=== PATIENT | female | born 1990 | race Caucasian/White ===

== ENCOUNTER 2019-04-09 12:14 | Outpatient (REF) | payer MEDICAID, SELFPAY ==
--- NOTE | 2019-04-09 11:40 | PAPFT_PTH ---
PATIENT: Bolivar Mackenzie LOC: DC U#:[id number] AGE/SX: 28/F ROOM: RE04/09/[address]: Martin Romano RN : 1990 BED: DIS: 04/09/2019 SPEC #: [id number] RECD: 04/09/19 12:53 STATUS: RAMBO REQ #: [id number] ROBY: 04/09/19 11:[address]: Martin Romano DEPT: [facility] Cytology RECD BY: Cecily Waite ENTERED: 04/09/19 12:53 SP TYPE: PAPFT OTHR DR: None Tissues: 1 - CX/ENDOCX FOR PAP SMEARS Procedures: PAP THIN PREP/UVM Screening Comments: [id number]
== END 2019-04-09 12:34 ==
LOC: LBN 12:14
PROVIDERS: Visit Provider Advanced Practice Midwife
DX: Z12.4 Encounter for screening for malignant neoplasm of cervix (principal)
CPT/HCPCS: 88142

== ENCOUNTER 2019-04-09 12:15 | Outpatient (REF) | payer MEDICAID, SELFPAY ==
[2019-04-09 14:45] LABS: *AMPHETAMINES SCREEN URINE Negative (Negative); *BARBITURATES SCREEN URINE Negative (Negative); *BENZODIAZEPINES SCREEN URINE Negative (Negative); Cannabinoids THC POSITIVE (Negative); Cocaine Screen,Urine Negative (Negative); METHADONE URINE SCREEN Negative (Negative); OPIATES URINE SCREEN Negative (Negative)
[2019-04-09 14:51] LABS: Tricyclic Antidepressants Negative (Negative)
[2019-04-10 14:02] LABS: Chlamydia Result Negative (Negative); GC Result Negative (Negative)
[2019-04-12 10:51] LABS: Buprenorphine Negative; Norbuprenorphine Negative
== END 2019-04-09 12:35 ==
LOC: LBN 12:15
PROVIDERS: Visit Provider Advanced Practice Midwife
DX: Z34.91 Encounter for supervision of normal pregnancy, unspecified, first trimester (principal); Z11.3 Encounter for screening for infections with a predominantly sexual mode of transmission
CPT/HCPCS: 80307; 87491; 87591; 87086; 87480; 87510; 87660

== ENCOUNTER 2019-04-11 11:10 | Outpatient (CLI) | payer MEDICAID, SELFPAY ==
[2019-04-11 11:54] LABS: Kit/Specimen SENT
[2019-04-11 12:07] LABS: Glucose,1 Hr (Glucola) 87 mg/dL (80-140)
[2019-04-11 12:17] LABS: Abs Immature Grans 0.01 k/cumm (0.0-0.09); Absolute Lymphocyte Count 1.03 k/cumm (1.2-3.4); Absolute Monocyte Count 0.45 k/cumm (0.11-0.7); Absolute Neutrophil Count 4.44 k/cumm (1.2-6.7); Eosinophils % 1.7; HCT 37.6 % (36.0-46.0); HGB 12.8 g/dL (12.0-15.5); Immature Grans % 0.2 %; Lymphocytes % 17.1; Mean Corpuscular Hemoglobin 29.5 pg (27.0-33.0); Mean Corpuscular Volume 86.6 fL (80-95); Mean Platelet Volume 11.8 fL (8.0-11.0); Monocytes % 7.5; Neutrophils % 73.5; Platelet Count 202 x1000/uL (130-400); RBC 4.34 m/cumm (4.00-5.20); RBC Distribution Width 12.9 % (11.7-14.6); White Blood Cell Count 6.03 k/cumm (4.4-10.8)
[2019-04-11 12:38] LABS: ALT 49 U/L (14-59); AST 21 U/L (15-37); Albumin 3.2 g/dL (3.4-5.0); Alkaline Phosphatase 61 U/L (46-116); Bilirubin, Direct 0.13 mg/dL (0.00-0.20); Bilirubin, Total 0.4 mg/dL (0.2-1.0); TSH (W/Ref FT4) 0.56 uIU/mL (0.36-3.74); Total Protein 6.5 g/dL (6.4-8.2)
[2019-04-12 11:01] LABS: Rubella IgG Ab (UVM) Positive (See Note); Varicella IgG Antibody Positive (See Note)
[2019-04-12 11:20] LABS: HIV-1/2 Ag & Ab Screen Negative (Negative)
[2019-04-12 11:21] LABS: Hepatitis B Surface Ag Negative (Negative)
[2019-04-12 11:24] LABS: Hepatitis C Ab w Rflx HCV PCR Negative (Negative)
[2019-04-12 12:03] LABS: Syphilis Total Ab w/Reflex Nonreactive (Nonreactive)
[2019-04-19 15:01] LABS: Result Summary NEGATIVE; Specimen WB Whole Blood
== END 2019-04-11 11:30 ==
PROVIDERS: PCP Internal Medicine; Visit Provider Advanced Practice Midwife
DX: Z34.91 Encounter for supervision of normal pregnancy, unspecified, first trimester (principal); Z36.89 Encounter for other specified antenatal screening
CPT/HCPCS: 80076; 82950; 86787; 86803; 86850; 86900; 86901; 87340; 87389; 81220; 84443; 85025; 86762; 86780

== ENCOUNTER 2019-06-04 01:44 | Outpatient (CLI) | payer MEDICAID, SELFPAY ==
--- NOTE | 2019-06-04 07:15 | DI.US_ITS ---
EXAM: US OB 2-3 TRIMESTER CLINICAL HISTORY: anatomic survey,Z34.90. TECHNIQUE: Transabdominal obstetrical ultrasound performed. COMPARISON: No exams were available for comparison FINDINGS: Transabdominal obstetrical ultrasound performed. FINDINGS: Number of fetuses: One. position: Variable. heart rate: 141 bpm. Placental grade: 0 -1 Placental location: Anterior. No evidence of previa. BIOMETRIC DATA: BPD: 45 millimeters HC: 174 millimeters AC: 143 millimeters FL: 31 millimeters Cisterna Magna: 5.1 millimeters Cerebellum: 1.93 cm EFW: !Error grms !Error% Composite Age: 19+ 5 weeks EDC by US: 24 October 2019 . Amount of fluid is within normal limits. ANATOMICAL SURVEY: Four-chambered heart: Unremarkable. LVOT: Unremarkable. RVOT: Unremarkable. Left-sided stomach: Unremarkable. urinary bladder: Unremarkable. Bilateral kidneys: Unremarkable. Three-vessel cord: Unremarkable. Cord insertion: Unremarkable. Umbilical artery velocity: Unremarkable. Posterior fossa:Unremarkable. ventricles: Unremarkable. nose: Unremarkable. lips: Unremarkable. palate: Unremarkable. spine: Unremarkable. Two arms and two legs: Unremarkable. IMPRESSION: 1. Single live intrauterine gestation as above. 2. Normal anatomic survey. DATA REPOSITORY:
== END 2019-06-04 02:04 ==
PROVIDERS: PCP Internal Medicine; Visit Provider Advanced Practice Midwife
DX: Z34.92 Encounter for supervision of normal pregnancy, unspecified, second trimester (principal); Z3A.19 19 weeks gestation of pregnancy
CPT/HCPCS: 76805

== ENCOUNTER 2019-08-03 04:02 | Outpatient (CLI) | payer MEDICAID, SELFPAY ==
[2019-08-03 09:25] LABS: HCT 36.6 % (36.0-46.0); HGB 12.1 g/dL (12.0-15.5); Mean Corp. HGB Concentration 33.1 g/dL (32.0-36.0); Mean Corpuscular Hemoglobin 29.2 pg (27.0-33.0); Mean Corpuscular Volume 88.4 fL (80-95); Mean Platelet Volume 10.7 fL (8.0-11.0); Platelet Count 214 x1000/uL (130-400); RBC 4.14 m/cumm (4.00-5.20); RBC Distribution Width 13.8 % (11.7-14.6); White Blood Cell Count 8.76 k/cumm (4.4-10.8)
[2019-08-03 09:47] LABS: Glucose,1 Hr (Glucola) 106 mg/dL (80-140)
== END 2019-08-03 04:22 ==
PROVIDERS: PCP Internal Medicine; Visit Provider Advanced Practice Midwife
DX: Z34.92 Encounter for supervision of normal pregnancy, unspecified, second trimester (principal)
CPT/HCPCS: 36415; 82950; 85027

== ENCOUNTER 2019-09-13 09:58 | Outpatient (CLI) | payer MEDICAID, SELFPAY ==
[2019-09-13 10:39] LABS: HCT 39.2 % (36.0-46.0); HGB 12.9 g/dL (12.0-15.5); Mean Corp. HGB Concentration 32.9 g/dL (32.0-36.0); Mean Corpuscular Hemoglobin 28.7 pg (27.0-33.0); Mean Corpuscular Volume 87.1 fL (80-95); Mean Platelet Volume 11.3 fL (8.0-11.0); Platelet Count 250 x1000/uL (130-400)
[2019-09-13 11:33] LABS: ALT 24 U/L (14-59); AST 15 U/L (15-37); Albumin 2.8 g/dL (3.4-5.0); Alkaline Phosphatase 106 U/L (46-116); Anion Gap 12.8 mmol/L (3-11); BUN 8 mg/dL (7-18); Bilirubin, Total 0.3 mg/dL (0.2-1.0); CO2 23.2 mmol/L (21.0-32.0); CREATININE 0.64 mg/dL (0.55-1.02); Calcium 8.8 mg/dL (8.5-10.1); Chloride 102 mmol/L (98-107); Glucose 111 mg/dL (74-106); Potassium 3.9 mmol/L (3.5-5.1); Sodium 138 mmol/L (136-145); Total Protein 6.6 g/dL (6.4-8.2); Uric Acid 5.1 mg/dL (2.6-6.0)
== END 2019-09-13 10:18 ==
PROVIDERS: PCP Internal Medicine; Visit Provider Advanced Practice Midwife
DX: O16.3 Unspecified maternal hypertension, third trimester (principal)
CPT/HCPCS: 36415; 80053; 85027; 84550

== ENCOUNTER 2019-09-13 11:51 | Outpatient (REF) | payer MEDICAID, SELFPAY ==
[2019-09-13 13:04] LABS: PROTEIN 29.3 mg/dL
[2019-09-13 13:10] LABS: COMMENT (LAB VIEW ONLY) 137.23 mg/dL; Prot/Crea Ur Ratio 0.21
== END 2019-09-13 12:11 ==
LOC: LBN 11:51
PROVIDERS: PCP Internal Medicine; Visit Provider Advanced Practice Midwife
DX: O16.3 Unspecified maternal hypertension, third trimester (principal)
CPT/HCPCS: 82565; 84156

== ENCOUNTER 2019-09-17 07:09 | Outpatient (CLI) | payer MEDICAID, SELFPAY ==
[2019-09-17 10:32] LABS: PROTEIN 19.2 mg/dL (0.0-11.9); Total Volume 2000 ml
== END 2019-09-17 07:29 ==
PROVIDERS: PCP Internal Medicine; Visit Provider Advanced Practice Midwife
DX: O13.3 Gestational [pregnancy-induced] hypertension without significant proteinuria, third trimester (principal); Z3A.33 33 weeks gestation of pregnancy
CPT/HCPCS: 59025; 81050; 84155

== ENCOUNTER 2019-09-20 10:01 | Outpatient (CLI) | payer MEDICAID, SELFPAY ==
[2019-09-20 15:49] LABS: HGB 12.9 g/dL (11.2-15.7); MCH 28.9 pg (27.0-33.0); MCHC 33.1 % (32.0-36.0); MCV 87.2 fL (80-95); MPV 11.2 fL (8.0-11.0); Platelet Count 238 10^3/uL (130-400); RBC 4.47 10^6/uL (3.93-5.22); RDW 13.5 % (11.7-14.6); RDW-SD 42.8 fL; WBC 8.58 10^3/uL (4.4-10.8)
[2019-09-20 16:03] LABS: ALT 20 U/L (14-59); AST 17 U/L (15-37); Albumin 2.9 g/dL (3.4-5.0); Alkaline Phosphatase 102 U/L (46-116); Anion Gap 11.6 mmol/L (3-11); BUN 8 mg/dL (7-18); Bilirubin, Total 0.5 mg/dL (0.2-1.0); CO2 22.4 mmol/L (21.0-32.0); CREATININE 0.57 mg/dL (0.55-1.02); Calcium 8.8 mg/dL (8.5-10.1); Chloride 101 mmol/L (98-107); Glucose 79 mg/dL (74-106); Potassium 3.8 mmol/L (3.5-5.1); Sodium 135 mmol/L (136-145); Total Protein 7.2 g/dL (6.4-8.2); Uric Acid 5.1 mg/dL (2.6-6.0)
[2019-09-20 16:31] LABS: PROTEIN < 6.0 mg/dL
[2019-09-20 16:33] LABS: COMMENT (LAB VIEW ONLY) < 13.00 mg/dL
== END 2019-09-20 10:21 ==
PROVIDERS: PCP Internal Medicine; Visit Provider Advanced Practice Midwife
DX: O13.3 Gestational [pregnancy-induced] hypertension without significant proteinuria, third trimester (principal); Z3A.36 36 weeks gestation of pregnancy
CPT/HCPCS: 80053; 85027; 59025; 82565; 84156; 84550

== ENCOUNTER 2019-09-24 01:06 | Outpatient (CLI) | payer MEDICAID, SELFPAY ==
--- NOTE | 2019-09-24 06:30 | DI.US_ITS ---
EXAM: US OB JOHNSON WEIGHT CLINICAL HISTORY: gestational hypertension,013.9 TECHNIQUE: Ultrasound performed using standard protocol. COMPARISON: US US OB 2-3 TRIMESTER from 06/04/2019 FINDINGS: Ob ultrasound was performed utilizing 3rd trimester protocol. biometry is consistent with gestational age of 35 weeks 6 days and an EDC October 23, 2019. Estimated weight is 2715 grams which is at the 75th percentile for predicted gestational age. Placenta is anterior with no placenta previa. The amniotic fluid index is 8 and there is visually a normal quantity of amniotic fluid. Fetus is in cephalic presentation. heart rate 132 BPM. IMPRESSION: DATA REPOSITORY:
== END 2019-09-24 01:26 ==
PROVIDERS: PCP Internal Medicine; Visit Provider Advanced Practice Midwife
DX: O13.3 Gestational [pregnancy-induced] hypertension without significant proteinuria, third trimester (principal)
CPT/HCPCS: 76816

== ENCOUNTER 2019-09-24 09:34 | Outpatient (CLI) | payer MEDICAID, SELFPAY | END 2019-09-24 09:54 | PROVIDERS: PCP Internal Medicine; Visit Provider Advanced Practice Midwife | DX: O13.3 Gestational [pregnancy-induced] hypertension without significant proteinuria, third trimester (principal); Z3A.34 34 weeks gestation of pregnancy | CPT/HCPCS: 59025 ==

== ENCOUNTER 2019-09-27 07:09 | Outpatient (CLI) | payer MEDICAID, SELFPAY ==
[2019-09-27 10:06] LABS: HCT 39.2 % (36.0-46.0); HGB 12.8 g/dL (11.2-15.7); MCH 28.8 pg (27.0-33.0); MCHC 32.7 % (32.0-36.0); MCV 88.3 fL (80-95); MPV 11.4 fL (8.0-11.0); Platelet Count 229 10^3/uL (130-400); RBC 4.44 10^6/uL (3.93-5.22); RDW 13.9 % (11.7-14.6); RDW-SD 44.6 fL; WBC 9.73 10^3/uL (4.4-10.8)
[2019-09-27 10:18] LABS: ALT 25 U/L (14-59); AST 16 U/L (15-37); Albumin 2.7 g/dL (3.4-5.0); Alkaline Phosphatase 104 U/L (46-116); Anion Gap 9.9 mmol/L (3-11); BUN 9 mg/dL (7-18); Bilirubin, Total 0.4 mg/dL (0.2-1.0); CO2 23.1 mmol/L (21.0-32.0); CREATININE 0.82 mg/dL (0.55-1.02); Calcium 8.7 mg/dL (8.5-10.1); Chloride 102 mmol/L (98-107); Glucose 91 mg/dL (74-106); Potassium 3.8 mmol/L (3.5-5.1); Sodium 135 mmol/L (136-145); Uric Acid 5.6 mg/dL (2.6-6.0)
[2019-09-27 11:06] LABS: COMMENT (LAB VIEW ONLY) 44.06 mg/dL; Prot/Crea Ur Ratio 0.27
== END 2019-09-27 07:29 ==
PROVIDERS: PCP Internal Medicine; Visit Provider Advanced Practice Midwife
DX: O13.3 Gestational [pregnancy-induced] hypertension without significant proteinuria, third trimester (principal); Z3A.35 35 weeks gestation of pregnancy
CPT/HCPCS: 36415; 80053; 85027; 59025; 82565; 84156; 84550; 87081

== ENCOUNTER 2019-10-01 07:22 | Outpatient (REF) | payer MEDICAID, SELFPAY | END 2019-10-01 07:42 | LOC: BCD 07:22 | PROVIDERS: PCP Internal Medicine; Visit Provider Advanced Practice Midwife | DX: O13.3 Gestational [pregnancy-induced] hypertension without significant proteinuria, third trimester (principal); Z3A.35 35 weeks gestation of pregnancy | CPT/HCPCS: 59025 ==

== ENCOUNTER 2019-10-04 13:58 | Outpatient (CLI) | payer MEDICAID, SELFPAY ==
[2019-10-04 14:52] LABS: HCT 38.9 % (36.0-46.0); HGB 12.7 g/dL (11.2-15.7); MCH 29.1 pg (27.0-33.0); MCHC 32.6 % (32.0-36.0); MPV 11.2 fL (8.0-11.0); Platelet Count 230 10^3/uL (130-400); RBC 4.37 10^6/uL (3.93-5.22); RDW-SD 45.6 fL; WBC 9.44 10^3/uL (4.4-10.8)
[2019-10-04 15:13] LABS: ALT 18 U/L (14-59); AST 11 U/L (15-37); Albumin 2.7 g/dL (3.4-5.0); Alkaline Phosphatase 106 U/L (46-116); Anion Gap 7.4 mmol/L (3-11); BUN 9 mg/dL (7-18); Bilirubin, Total 0.4 mg/dL (0.2-1.0); CO2 25.6 mmol/L (21.0-32.0); CREATININE 0.64 mg/dL (0.55-1.02); Calcium 8.7 mg/dL (8.5-10.1); Chloride 101 mmol/L (98-107); Glucose 85 mg/dL (74-106); Potassium 3.9 mmol/L (3.5-5.1); Sodium 134 mmol/L (136-145)
[2019-10-04 22:23] LABS: PROTEIN < 6.0 mg/dL
[2019-10-04 22:34] LABS: COMMENT (LAB VIEW ONLY) 10.55 mg/dL
== END 2019-10-04 14:18 ==
PROVIDERS: Advanced Practice Midwife; PCP Internal Medicine; Visit Provider Advanced Practice Midwife
DX: O13.3 Gestational [pregnancy-induced] hypertension without significant proteinuria, third trimester (principal); Z3A.36 36 weeks gestation of pregnancy
CPT/HCPCS: 80053; 85027; 59025; 82565; 84156; 84550

== ENCOUNTER 2019-10-08 07:49 | Outpatient (CLI) | payer MEDICAID, SELFPAY | END 2019-10-08 08:09 | PROVIDERS: PCP Internal Medicine; Visit Provider Advanced Practice Midwife | DX: O13.3 Gestational [pregnancy-induced] hypertension without significant proteinuria, third trimester (principal); Z3A.36 36 weeks gestation of pregnancy | CPT/HCPCS: 59025 ==

== ENCOUNTER 2019-10-12 15:08 | Observation (INO) | payer MEDICAID, SELFPAY ==
[2019-10-12 16:45] LABS: HGB 12.8 g/dL (11.2-15.7); MCH 28.8 pg (27.0-33.0); MCHC 32.8 % (32.0-36.0); MCV 87.6 fL (80-95); MPV 11.5 fL (8.0-11.0); Platelet Count 243 10^3/uL (130-400); RBC 4.45 10^6/uL (3.93-5.22); RDW 14.2 % (11.7-14.6); RDW-SD 45.3 fL; WBC 10.56 10^3/uL (4.4-10.8)
[2019-10-12] MEDS: miSOPROStol 25 MCG TAB PO (20:07)
[2019-10-12] MEDS: Zolpidem 5 MG TAB 10 MG PO (22:18)
[2019-10-13] MEDS: miSOPROStol 25 MCG TAB PO ×2 (00:28→04:31)
[2019-10-13] MEDS: miSOPROStol 50 MCG TAB (14:11)
[2019-10-13] MEDS: hydrOXYzine PAMOATE 25 MG CAP 50 MG PO (20:42)
[2019-10-13] MEDS: MORPHine 10 MG/ML VIAL IM (20:43)
[2019-10-13 21:02] LABS: COVID-19 RT-PCR UVMMC Result Negative (Negative)
== END 2019-10-14 08:20 | disposition home or self-care (01) ==
PROVIDERS: Admitting Provider Advanced Practice Midwife; PCP Internal Medicine; Visit Provider Advanced Practice Midwife
DX: O13.3 Gestational [pregnancy-induced] hypertension without significant proteinuria, third trimester (principal); O61.1 Failed instrumental induction of labor; O61.0 Failed medical induction of labor; O76 Abnormality in fetal heart rate and rhythm complicating labor and delivery; O26.813 Pregnancy related exhaustion and fatigue, third trimester; Z3A.37 37 weeks gestation of pregnancy
CPT/HCPCS: 36415; 85027; 86850; 86900; 86901; U0003; 59200; J2270; J3490

== ENCOUNTER 2019-10-15 16:16 | Inpatient (IN) | payer MEDICAID, SELFPAY ==
[2019-10-15] MEDS: Dinoprostone-CERVICAL 10 MG VSUPP VG (17:30)
[2019-10-15] MEDS: Zolpidem 5 MG TAB 10 MG PO (21:05)
[2019-10-16] MEDS: Normal Saline Flush 10 ML SYR IVP (09:05)
[2019-10-16] MEDS: Lactated Ringers 1,000 ML 125 ML IV ×2 (09:06→16:09)
[2019-10-16] MEDS: Oxytocin/Normal Saline 30 UNITS/500 ML BAG IV (09:06)
[2019-10-17 08:16] LABS: HCT 36.3 % (36.0-46.0); HGB 12.1 g/dL (11.2-15.7); MCH 28.9 pg (27.0-33.0); MCHC 33.3 % (32.0-36.0); MCV 86.8 fL (80-95); MPV 11.6 fL (8.0-11.0); Platelet Count 220 10^3/uL (130-400); RBC 4.18 10^6/uL (3.93-5.22); RDW 14.3 % (11.7-14.6); RDW-SD 45.5 fL; WBC 8.72 10^3/uL (4.4-10.8)
== END 2019-10-17 19:20 | disposition home or self-care (01) | DRG 806 ==
PROVIDERS: Admitting Provider Advanced Practice Midwife; PCP Internal Medicine; Visit Provider Advanced Practice Midwife
DX: O13.4 Gestational [pregnancy-induced] hypertension without significant proteinuria, complicating childbirth (principal); O98.32 Other infections with a predominantly sexual mode of transmission complicating childbirth; Z37.0 Single live birth; O69.1XX0 Labor and delivery complicated by cord around neck, with compression, not applicable or unspecified; O70.1 Second degree perineal laceration during delivery; O76 Abnormality in fetal heart rate and rhythm complicating labor and delivery; Z3A.37 37 weeks gestation of pregnancy; Z11.59 Encounter for screening for other viral diseases; O99.324 Drug use complicating childbirth; F12.10 Cannabis abuse, uncomplicated; A60.00 Herpesviral infection of urogenital system, unspecified; O10.92 Unspecified pre-existing hypertension complicating childbirth
CPT/HCPCS: 36415; 85027; 86850; 86900; 86901; 59200

== ENCOUNTER 2021-08-28 02:04 | Outpatient (CLI) | payer MEDICAID, SELFPAY ==
--- OUTSIDE RECORDS SUMMARY | 2021-08-28 02:06 | XMS_ITS | Encounter Summary ---
:1990 Author Organization [place] [address] Care Team Providers Name Role Phone AlinStephanie DANIELITO Primary Care Provider [phone] Encounter Details Date Type Department Care Team Description 11/19/2015 Telephone Endocrinology at [facility] Naima Horton, [place] [phone] Social History Tobacco Use Types Packs/Day Years Used Date Never Smoker Sex Assigned at Date Recorded Not on file documented as of this encounter Miscellaneous Notes Telephone Encounter - Tasia Pearce MD - 11/19/2015 11:33 AM EDT Returned the patient's call, relayed results and plan as outlined in telephone encounter dated 11/13/15. Bolivar states she had gone twice for LDDST, initially in the first week of October after having taken the two 0.5mg tablets at 11pm, but the lab had lost her registration so she couldn't have the bloodwork done because of the delay. The lab called in a script for 1mg dexamethasone which she picked up at her local pharmacy, and a couple weeks later, on 11/09 she took the 1mg dex at 11pm, and went forbloodwork the next morning, which she had done at 8:05am. Because she had insufficient suppression of her cortisol level, it could either be related to Luz Maria's, pseudocushings, or hypermetabolism of dexamethasone. I will have her do a 24 hour urine collection and repeat a LDDST. I instructed her to wait another 2-3 weeks before doing the 24hr UFC (to allow3-4 weeks for the dexamethasone to completely exit her system), and to do the repeat LDDST after shecompletes the 24h UFC. [place] 1[place]5 hours away so I will send her lab slips via mail, and send a script electronically forthe 1mg dex to her local pharmacy. TASIA PEARCE MD Acid Tank Cleanerpre sales architect Section of Endocrinology [facility] Telephone Encounter - Naima Hicks RN - 11/19/2015 10:37 AM EDT Bolivar calls in returning a call to Dr Pearce. States she was instructed to call between 9-10 (typewriter ribbon winder received message at 10:37) Message forwarded to Dr Portia Lutz can be reached at [phone] documented in this encounter Plan of Treatment Not on filedocumented as of this encounter Results (ABNORMAL) Creatinine, urine, 24 hour (04/09/2016) athologist Signature U Creatinine 158 (EXTERNAL/ ABN) Specimen (Source) Anatomical Location Collection Method / Collectio n Time Received Time / Laterality Volume Urine specimen 04/09/2016 (specimen) Narrative This result has an attachment that is no t available. Tasia Pearce MD URINE ORDERABLES (ABNORMAL) Cortisol, urine, 24 hour (04/09/2016) athologist Signature U24 Cortisol 29 (External Lab) Specimen (Source) Anatomical Location Collection Method / Collectio n Time Received Time / Laterality Volume Urine specimen 04/09/2016 (specimen) Narrative This result has an attachment that is no t available. Tasia Pearce MD URINE ORDERABLES documented in this encounter Visit Diagnoses Diagnosis Oligomenorrhea - Primary Scanty or infrequent menstruation documented in this encounter Care Teams Diagnostic Technician Relationship Specialty Start Date End Date Stephanie Ogden APRN PCP - General Family Medicine 08/20/[address] [place] [address] [address] [place] [address] documented as of this encounter
--- OUTSIDE RECORDS SUMMARY | 2021-08-28 02:06 | XMS_ITS | Encounter Summary ---
:1990 Author Organization [facility] [place] [address] Care Team Providers Name Role Phone Stephanie Ogden APRN Primary Care Provider [phone] Encounter Details Date Type Department Care Team Description 04/27/2016 Telephone Endocrinology at [facility] Naima Hicks, [place] [phone] Social History Tobacco Use Types Packs/Day Years Used Date Never Smoker Sex Assigned at Date Recorded Not on file documented as of this encounter Miscellaneous Notes Telephone Encounter - Naima Hicks, RN - 04/27/2016 10:18 AM EST Bolivar calls in and left message that she is looking for results of recent 24 hour urine tests. Message forwarded to Dr Pearce documented in this encounter Plan of Treatment Not on filedocumented as of this encounter Visit Diagnoses Not on filedocumented in this encounter Care Teams Bridal Sales Consultant Relationship Specialty Start Date End Date Stephanie Ogden APRN PCP - General Family Medicine 08/20/[address] [place] [address] [address] [place] [address] documented as of this encounter
--- OUTSIDE RECORDS SUMMARY | 2021-08-28 02:06 | XMS_ITS | Encounter Summary ---
:1990 Author Organization [facility] [place] [address] Care Team Providers Name Role Phone Stephanie Ogden APRN Primary Care Provider Encounter Details Date Type Department Care Team Description 03/29/2016 Telephone Endocrinology at [facility] [place] [phone] Social History Tobacco Use Types Packs/Day Years Used Date Never Smoker Sex Assigned at Date Recorded Not on file documented as of this encounter Miscellaneous Notes Telephone Encounter - Cleopatra Ewing LPN - 04/05/2016 8:45 AM EST Images from the original note were not included. Bolivar Mackenzie?? Female, 25 y.o., 1990 Weight: (!) 122.9 kg (271 lb) Home: Work: PCP: Stephanie Ogden APRN myD-H: Code Exp Next Appt: None Conversation (Newest Message First) April 02, 2016 Tasia Pearce MD to Naima Hicks RN ??? Me ?? 5:05 PM Oops sorry as i sent that last quicknote, i forgot it was Cleopatra who was working on this case, not Naima. Sorry for the confusion! Tasia Pearce MD to Naima Hicks RN ?? 5:03 PM Note 25-OH-D was 28 (ref >30) - she can take an OTC vitamin D supplement 2000 units daily ?? Vitamin B12 was 482 (ref >500) - she can take an OTC vitamin B12 supplement 1000 mcg daily. ?? I took another look at that cortisol level result that we have from November 2015, and looks like it was a serum cortisol done at ~8am. That cortisol level was 3. Per the eDH record it was supposed to have been a low dose dexamethasone suppression test. ?? In that case, in contrast to what I said before, I do need her to do the 24 hour urine collection. If she misplaced the lab slips, we can mail her another copy of each - needs to be a 24 hr urine free cortisol AND a 24 hr urine creatinine level. Both. Please make sure she understands this. ?? TASIA PEARCE MD Physician Surgeonbroadcast checker Section of Endocrinology [facility] ?? Called patient at which time above message was read to her. Patient agrees with plan of care and states she is currently taking Vitamin B12 150 mcg daily and will increase to 1000 mcg daily . Is taking vitamin D 1000 IU daily and will increase to 2000 IU daily. Lab orders faxed to lab @ [facility] per patient request. Telephone Encounter - Cleopatra Ewing LPN - 03/31/2016 3:12 PM EST Called patient at which time she was told per Dr Pearce that Luz Maria's syndrome was ruled out. No further testing is necessary. PCP will prescribe supplements for vitamin d and B12 if Dr Pearce recommends it. Labs faxed to PCP per Dr Pearce. Telephone Encounter - Tasia Pearce MD - 03/29/2016 6:50 PM EST Please send a copy of the scanned lab reports listed in eDH under 11/08/15 and 11/12/15 to the patient's PCP. They include the low 25-OH-D and vitamin B12 levels. 24h urine cortisol result noted to be low at 3, which is negative for Chelsea's screening. The LDDST is actually not needed at this point, since we have 3 negative screening tests for Luz Maria's syndrome (MN salivary x 2, 24h UFC). TASIA PEARCE MD Physician Surgeonbroadcast checker Section of Endocrinology [facility] Telephone Encounter - Cleopatra Ewing LPN - 03/29/2016 10:48 AM EST Images from the original note were not included. R/c to patient. I am at a stand still. I never got the lab orders that I was supposed to and Ialked to someone about my B12 and vitamin D but never heard back. I have things going on that my PCP can't pinpoint. My pcp never received anything about my low B12 and D. They asked me to call you. Forward to Dr Pearce that following labs are needed. If so order for serum cortisol and dexamethasone need to be placed in edh. Telephone 11/19/2015 Endocrinology Naima Hicks RN Oligomenorrhea Dx Conversation (Newest Message First) Tasia Pearce MD to [facility] ?? 11/19/15 11:50 AM Please mail external lab slips ordered in this encounter to the patient (serum cortisol, dexamethasone level, 24h urine cortisol, 24h urine creatinine). Thanks so much! --Tasia documented in this encounter Plan of Treatment Not on filedocumented as of this encounter Visit Diagnoses Not on filedocumented in this encounter Care Teams Cheese Blender Relationship Specialty Start Date End Date Stephanie Ogden APRN PCP - General Family Medicine 08/20/[address] [place] [address] [address] [place] [address] documented as of this encounter
--- OUTSIDE RECORDS SUMMARY | 2021-08-28 02:06 | XMS_ITS | Encounter Summary ---
:1990 Author Organization [facility] [place] [address] Care Team Providers Name Role Phone Stephanie Ogden APRN Primary Care Provider [phone] Encounter Details Date Type Department Care Team Description 10/17/2015 Telephone Endocrinology at [facility] Naima Horton, [place] [address] Social History Tobacco Use Types Packs/Day Years Used Date Never Smoker Sex Assigned at Date Recorded Not on file documented as of this encounter Miscellaneous Notes Telephone Encounter - Naima Hicks, RN - 10/17/2015 11:52 AM EDT Bolivar calls in and left message that she was supposed to do a over night dexamethasone suppression test. States that she took the dexamethasone and went to the lab and states that they lost the lab slip so couldn't do the blood work. Spoke with Bolivar she will need new script for dexamethasone to be sent to [facility]. Will fax lab slip to [facility]. Lab faxed. documented in this encounter Plan of Treatment Not on filedocumented as of this encounter Visit Diagnoses Not on filedocumented in this encounter Care Teams Boilermaker Industrial Boilers Relationship Specialty Start Date End Date Stephanie Ogden APRN PCP - General Family Medicine 08/20/[address] [place] [address] , [address] [place], [place] [id number] documented as of this encounter
--- OUTSIDE RECORDS SUMMARY | 2021-08-28 02:06 | XMS_ITS | Encounter Summary ---
:1990 Author Organization [facility] [place] [address] Care Team Providers Name Role Phone Stephanie Ogden APRN Primary Care Provider [phone] Encounter Details Date Type Department Care Team Description 10/03/2015 Telephone Endocrinology at [facility] Naima Horton, [place] [address] Social History Tobacco Use Types Packs/Day Years Used Date Never Smoker Sex Assigned at Date Recorded Not on file documented as of this encounter Miscellaneous Notes Telephone Encounter - Naima Hicks, RN - 10/03/2015 9:09 AM EDT Placed call to Bolivar to let her know labs being faxed to [facility]. No answer left message. documented in this encounter Plan of Treatment Not on filedocumented as of this encounter Visit Diagnoses Not on filedocumented in this encounter Care Teams County Director Welfare Relationship Specialty Start Date End Date Stephanie Ogden APRN PCP - General Family Medicine 08/20/[address] [place] [address] [address] [place], [place] [id number] documented as of this encounter
--- OUTSIDE RECORDS SUMMARY | 2021-08-28 02:06 | XMS_ITS | Encounter Summary ---
:1990 Author Organization [facility] [place] [address] Care Team Providers Name Role Phone Alin Stephanie APRN Primary Care Provider [phone] Encounter Details Date Type Department Care Team Description 11/16/2018 Hospital Encounter Mammography at [facility] Patsy Gibson, Abnormal finding on [facility] MD breast imaging [facility] [phone] NUCLEAR MEDICINE [phone] [place] [address] Social History Tobacco Use Types Packs/Day Years Used Date Never Smoker Sex Assigned at Date Recorded Not on file documented as of this encounter Medications at Time of Discharge Medication Sig Dispensed Refills Start Date End Date cyanocobalamin 1,000 mcg Take 1,000 mcg by 0 Tablet mouth daily. cholecalciferol, Vitamin Take 2,000 Units by 0 D3, 2,000 unit Capsule mouth daily. FLUoxetine (PROZAC) 20 mg take 1 capsule by 0 Capsule mouth once daily WITH 10MG FOR A TOTAL OF 30MG FLUoxetine (PROZAC) 10 mg take 1 capsule by 0 Capsule mouth once daily WITH 20MG, FOR 30MG TOTAL zolpidem (AMBIEN) 10 mg take 1 tablet by 0 2015 Tablet mouth at bedtime if needed documented as of this encounter Miscellaneous Notes Plan of Care - Crow Noel MD - 11/15/2018 11:17 AM EDT Pre-procedure note for needle breast biopsies performed in radiology. Procedure date: 11/16/2018 Procedure type: - Ultrasound-guided needle biopsy of left breast lesion in upper outer quadrant 2 o'clock 5 cm from the nipple - Repeat ultrasound for consideration of biopsy versus short interval follow up of left breast lesion in upper inner quadrant 11 o'clock 9 cm from the nipple Allergies: Patient has no known allergies. Medications: Current Outpatient Medications: ??? cyanocobalamin 1,000 mcg Tablet, Take 1,000 mcg by mouth daily., Disp: , Rfl: ??? cholecalciferol, Vitamin D3, 2,000 unit Capsule, Take 2,000 Units by mouth daily., Disp: , Rfl: ??? FLUoxetine (PROZAC) 20 mg Capsule, take 1 capsule by mouth once daily WITH 10MG FOR A TOTAL OF 30MG, Disp: , Rfl: 0 ??? FLUoxetine (PROZAC) 10 mg Capsule, take 1 capsule by mouth once daily WITH 20MG, FOR 30MG TOTAL,Disp: , Rfl: 0 ??? zolpidem (AMBIEN) 10 mg Tablet, take 1 tablet by mouth at bedtime if needed, Disp: , Rfl: 0 Anticoagulation status: None Imaging reviewed and procedural plan approved by Dr. Crow Noel MD documented in this encounter Plan of Treatment Not on filedocumented as of this encounter Procedures Procedure Name Priority Date/Time Associated Diagnosis Comme nts MAMMO US BIOPSY Routine 11/16/2018 2:30 PM Abnormal finding on Results for this LEFT EDT breast imaging procedure are in the results section. SPECIMEN TO Routine 11/16/2018 2:27 PM Results f or this PATHOLOGY EDT procedure are i n the results section. SURGICAL PATHOLOGY Routine 11/16/2018 2:20 PM Res ults for this REPORT EDT procedure are i n the results section. documented in this encounter Results Mammo Us Biopsy Left (11/16/2018 2:30 PM EDT) Anatomical Region Laterality Modality Breast Left Mammography Specimen (Source) Anatomical Location Collection Method / Collectio n Time Received Time / Laterality Volume Impressions 11/17/2018 12:14 PM EDT Benign and concordant result RECOMMENDATION: No recommendation/follow-up in regards t o lesion 1. The patient is pending follow-up in approximately 6 weeks for l esion 2. She has been scheduled for this appointment. REVIEW PATH CONFERENCE?: No NOTE: Findings were discussed with the p atient by phone. The comprehensive breast program was informed. Thank you for letting us participate in the care of this patient. For questions regarding this report, please contact e number below. ? Narrative 11/17/2018 12:14 PM EDT LEFT BREAST ULTRASOUND GUIDED AUTOMATED CORE BIOPSY CLINICAL HISTORY: 27-year-old female, ul trasound-guided biopsy of left breast lesion 1, at approximately 2:00, 5 cm fr om the nipple. PROCEDURAL DETAILS: Informed consent was obtained and a time out procedure was performed per protocol. Using local anesthetic (less t fernandez 5 cc of 1% lidocaine), sterile technique, and ultrasound guidance the l esion in the left breast was localized and sampled. Multiple satisfactory core biopsy specim ens were obtained using a 14-gauge automated device. A MergeLocal 14G marker clip was chen archana. The clip was in satisfactory position both sonographically and at fol low-up cranio-caudal and true lateral digital mammography, 0 mm of displacemen t. COMPLICATIONS: None. PROCEDURAL ATTESTATION: Resident: José Miguel Alvarez performed the procedure with the [facility] ent observing. IMAGING DIFFERENTIAL DIAGNOSIS: Fibroadenoma, rule out phyllodes. PATHOLOGIC DIAGNOSIS: Fibroadenoma Patsy Gibson MD IMG MAMMO ORDERABLES Specimen to Pathology (11/16/2018 2:27 PM EDT) Specimen Anatomical Collection Method Collection Time Receive d Time (Source) Location / / Volume Laterality AP Specimen 11/16/2018 2:27 PM 9 2:27 EDT PM EDT Narrative [facility] - 11/16/2018 2:27 PM EDT Specimen requisition ordered. ??Separate Pathology report to follow Braydon Smart MD PATHOLOGY/CYTOLOGY ORDERABLE S Performing Organization Address City/[facility]/[place]IP [place] [address] Surgical Pathology Report (11/16/2018 2:20 PM EDT) Component Value Ref Test Analysis Performed At [facility] Range Method Time Signature Surgical [id number] ? Location: 3[facility] The signing pathologist has (i) examined the relevant preparation(s) for the [facility] specimen(s) and (ii) rendered or confirmed the diagnosis(es) . HOSPITAL LABORATORY . ?Surgic al Pathology DIAGNOSIS Needle biopsies: ?Left breast Diagnosis: ?Fibroadenoma Microcalcifications: ??N/A Electronically signed by: ??Glory Hernandez DO Verified: ??11/17/2018 ?Pathologist Performed at: ??-[facility] Dept. of Pathology, [place], [place] CLINICAL INFORMATION Specimen Submitted: A - Left breast u/s bx 14g Clinical History and Diagnosis: Mass; FA, CA SPECIMEN PROCESSING A - Labeled/Fixative: Left breast US BX, formalin. Quantity/Size: Six, ranging from 0.4-1.0 cm. Tissue Description: [place] fibrofatty needle core biopsi es. Sections/Processing: Entirely submitted in 2 cassettes labeled A1-A2. Ischemic Time: 5 minutes ??ejr Specimen (Source) Anatomical Collection Method Collection Time Re ceived Time Location / / Volume Laterality 11/16/2018 2:20 PM EDT Braydon Smart MD PATHOLOGY/CYTOLOGY ORDERABLE S Performing Organization Address City/State/ZIP Code [place] [facility] [place] [address] documented in this encounter Visit Diagnoses Diagnosis Abnormal finding on breast imaging Other (abnormal) findings on radiologica l examination of breast documented in this encounter Administered Medications Inactive Administered Medications - up to 3 most recent administrations Medication Order MAR Action Action Date Dose Rate Site lidocaine (XYLOCAINE) 10 mg/mL (1 Given 11/16/2018 2:20 PM EDT 1 0 mg %) injection 10 mg 10 mg, Intradermal, ONCE, 1 dose, On Nina 11/16/18 at 1430, Routine documented in this encounter Care Teams Weather Observer Relationship Specialty Start Date End Date Stephanie Ogden APRN PCP - General Family Medicine 08/20/[address] [place] [address] , [address] [place] [address] documented as of this encounter
--- OUTSIDE RECORDS SUMMARY | 2021-08-28 02:06 | XMS_ITS | Encounter Summary ---
:1990 Author Organization [facility] [place] [address] Care Team Providers Name Role Phone Stephanie Ogden APRN Primary Care Provider Encounter Details Date Type Department Care Team Description 01/11/2019 Hospital Encounter Mammography at [facility] Braydon Smart Abnormal finding on [facility] MD Olivia breast imaging [facility] [address] DIAGNOSIC [phone] [place] [address] Social History Tobacco Use Types Packs/Day Years [...] if needed documented as of this encounter Plan of Treatment Not on filedocumented as of this encounter Procedures Procedure Name Priority Date/Time Associated Diagnosis Comme nts MAMMO BREAST US Routine 01/11/2019 11:41 AM Abnormal finding o n Results for this LIMITED LEFT EST breast imaging procedure are in the results section. documented in this encounter Results US Breast Limited Left (01/11/2019 11:41 AM EST) Anatomical Region Laterality Modality Breast Left Mammography Specimen (Source) Anatomical Location Collection Method / Collectio n Time Received Time / Laterality Volume Impressions 01/11/2019 12:07 PM EST Likely fat necrosis left breast that appears stable compared to prior study. Follow-up ultrasound in 6 months to ensu re benign progressive evolution. BI-RADS Category 3: Probably Benign Find ing-short interval follow-up or continued surveillance mammography Thank you for letting us participate in the care of this patient. For questions regarding this report, please contact e number below. ? Narrative 01/11/2019 12:07 PM EST EXAMINATION: US ??BREAST LIMITED LEFT CLINICAL HISTORY: 6 week f/u lesion 2 TECHNIQUE: Targeted left breast ultrasound COMPARISON: Breast ultrasound dated 11/16/2018 FINDINGS: There is stable size and morphology of h ypoechoic focus surrounded by large echogenic region in the subcutaneous fat of the left breast at 11:00 9 cm radial to the nipple. Again noted is mild hyper emia. Findings are highly suggestive of fat necrosis. However given the lack of change, recommend one additional ultrasound in 6 months to demonstrate pr ogressive benign evolution. Braydon Smart MD IMG MAMMO ORDERABLES documented in this encounter Visit Diagnoses Diagnosis Abnormal finding on breast imaging Other (abnormal) findings on radiologica l examination of breast documented in this encounter Care Teams Director Of Community Education Relationship Specialty Start Date End Date Stephanie Ogden APRN PCP - General Family Medicine 08/20/[address] [place] [address] , [address] [place] [address] documented as of this encounter
--- OUTSIDE RECORDS SUMMARY | 2021-08-28 02:06 | XMS_ITS | Encounter Summary ---
:1990 Author Organization [facility] [place] [address] Care Team Providers Name Role Phone Stephanie Ogden SCREEDMAN Primary Care Provider [phone] Encounter Details Date Type Department Care Team Description 11/08/2018 Ancillary Procedure Radiology Library at [facility], Left breast mass [facility] JUSTICE Draper [address] [place], [place] [id number] [phone] Social History Tobacco Use Types Packs/Day Years Used Date Never Smoker Sex Assigned at Date Recorded Not on file documented as of this encounter Plan of Treatment Not on filedocumented as of this encounter Procedures Procedure Name Priority Date/Time Associated Diagnosis Comme nts REQUEST FOR 2ND Routine 11/07/2018 5:03 PM Left breast mass Re sults for this READ MAMMO EDT procedure are i n the results section. documented in this encounter Results Request for 2nd read Mammo (11/07/2018 5:03 PM EDT) Anatomical Region Laterality Modality SO Specimen (Source) Anatomical Location Collection Method / Collectio n Time Received Time / Laterality Volume Impressions 11/08/2018 9:38 AM EDT LEFT BREAST LESION #1 1.3 cm Mass ??Upper Outer Quadrant 2 OCl ock 5 cm from the nipple LEFT BREAST LESION #2 0.8 cm Mass ??Upper Inner Quadrant 11 OC lock 9 cm from the nipple RECOMMENDATION: BI-RADS Category 4: Suspicious Finding - Biopsy Should Be Considered Ultrasound-guided biopsy of lesion 1 and repeat ultrasound consideration for biopsy versus short interval follow-up o f lesion 2 Please note: The interpretation of the [facility] Breast Imaging Radiologist subspecialist may differ fro m the original radiologists interpretation. This is usually not due to a deficiency of the original interpreting radiologist, rather due to the greater skill level afforded by sub-specialization in the field and/or r easonable variations in interpretations. If you have a concern regarding the [facility] interpretation you may contact the [facility] Breast Talent Acquisition Coordinator Office at . Thank you for letting us participate in the care of this patient. For questions regarding this report, please contact e number below. ? Narrative 11/08/2018 9:38 AM EDT INTERPRETATION OF OUTSIDE BREAST IMAGING I have been asked to consult on this pat ient by Dr. Galvez because he/she believes a review of this study may arechiga ge or alter the care of this patient. STUDIES FROM: [facility] DATES: Limited LEFT breast Ultrasound fr 07/06/2018 and 11/02/2018 TYPE OF EXAM: Ultrasound CLINICAL HISTORY: LEFT BREAST MASS @ 2:0 0, CAT 4; ? BX, ? MORE IMAGING; What Modality is the exam? Ultrasound; Body P art (please add comments as necessary): LEFT BREAST; I believe a reinterpretatio n of this exam may alter care of Patient. Yes. ?? COMPARISONS: None FINDINGS: At 2:00 in the LEFT breast 5 cm from the nipple on the study from 07/06/2018 is a 1 cm hypoechoic lobulated mass with a fe w angular margins and minimal internal vascularity. This it increased to 1.3 cm by the November 02 examination and therefore biopsy is recommended. On the November 02 examination, also identified was a 0.8 cm irregular hypoec hoic area with a ill-defined thick echogenic border and some posterior acou stic shadowing but no vascularity. This is at 11:00 9 cm from the nipple. I am u nsure if this was palpable and if the patient has a history of trauma. This co uld be an area of fat necrosis, or hematoma but should be reevaluated with ultrasound at the time of biopsy of lesion 1 with consideration for biopsy v ersus short-term follow-up Procedure Note Patsy Gibson MD - 11/08/2018Formattin g of this note might be different from the original. INTERPRETATION OF OUTSIDE BREAST IMAGING I have been asked to consult on this pat ient by Dr. Galvez because he/she believes a review of this study may arechiga ge or alter the care of this patient. STUDIES FROM: [facility] DATES: Limited LEFT breast Ultrasound [facility] 07/06/2018 and 11/02/2018 TYPE OF EXAM: Ultrasound CLINICAL HISTORY: LEFT BREAST MASS @ 2:0 0, CAT 4; ? BX, ? MORE IMAGING; What Modality is the exam? Ultrasound; Body P art (please add comments as necessary): LEFT BREAST; I believe a reinterpretatio n of this exam may alter care of Patient. Yes. COMPARISONS: None FINDINGS: At 2:00 in the LEFT breast 5 cm from the nipple on the study from 07/06/2018 is a 1 cm hypoechoic lobulated mass with a fe w angular margins and minimal internal vascularity. This it increased to 1.3 cm by the November 02 examination and therefore biopsy is recommended. On the November 02 examination, also identified was a 0.8 cm irregular hypoec hoic area with a ill-defined thick echogenic border and some posterior acou stic shadowing but no vascularity. This is at 11:00 9 cm from the nipple. I am u nsure if this was palpable and if the patient has a history of trauma. This co uld be an area of fat necrosis, or hematoma but should be reevaluated with ultrasound at the time of biopsy of lesion 1 with consideration for biopsy v ersus short-term follow-up IMPRESSION LEFT BREAST LESION #1 1.3 cm Mass Upper Outer Quadrant 2 OCloc k 5 cm from the nipple LEFT BREAST LESION #2 0.8 cm Mass Upper Inner Quadrant 11 OClo ck 9 cm from the nipple RECOMMENDATION: BI-RADS Category 4: Suspicious Finding - Biopsy Should Be Considered Ultrasound-guided biopsy of lesion 1 and repeat ultrasound consideration for biopsy versus short interval follow-up o f lesion 2 Please note: The interpretation of the [facility] Breast Imaging Radiologist subspecialist may differ fro m the original radiologists interpretation. This is usually not due to a deficiency of the original interpreting radiologist, rather due to the greater skill level afforded by sub-specialization in the field and/or r easonable variations in interpretations. If you have a concern regarding the [facility] interpretation you may contact the [facility] Breast Talent Acquisition Coordinator Office at . Thank you for letting us participate in the care of this patient. For questions regarding this report, please contact e number below. Electronically signed by: Lucero Garvin [facility] ([phone]), at 11/08/2018 9:38 AM Rowan RENDON IMG OUTSIDE INTERPRETATION O RDERABLES documented in this encounter Visit Diagnoses Diagnosis Left breast mass Lump or mass in breast documented in this encounter Care Teams Petroleum Sampler Relationship Specialty Start Date End Date Stephanie Ogden APRN PCP - General Family Medicine 08/20/[address] [place] [address] [address] [place] [address] documented as of this encounter
--- OUTSIDE RECORDS SUMMARY | 2021-08-28 02:06 | XMS_ITS | Encounter Summary ---
:1990 Author Organization [facility] [place] [address] Care Team Providers Name Role Phone Stephanie Ogden APRN Primary Care Provider [phone] Encounter Details Date Type Department Care Team Description 04/21/2016 External Results Endocrinology at [facility] Tasia Hendrickson, Oligomenorrhea [facility] [place] [address] [facility] [phone] ENDOCRINOLOGY [place], [place] [address] Social History Tobacco Use Types Packs/Day Years Used Date Never Smoker Sex Assigned at Date Recorded Not on file documented as of this encounter Plan of Treatment Not on filedocumented as of this encounter Procedures Procedure Name Priority Date/Time Associated Diagnosis Comme nts CORTISOL, URINE, 24 Routine 04/09/2016 Oligomenorrhea Result s for this HOUR procedure are i n the results section . documented in this encounter Results (ABNORMAL) Cortisol, urine, 24 hour (04/09/2016) P athologist Signature U24 Cortisol 29 (External Lab) Specimen (Source) Anatomical Location Collection Method / Collectio n Time Received Time / Laterality Volume Urine specimen 04/09/2016 (specimen) Narrative This result has an attachment that is no t available. Tasia Pearce MD URINE ORDERABLES documented in this encounter Visit Diagnoses Diagnosis Oligomenorrhea [place]y or infrequent menstruation documented in this encounter Care Teams Dairy Chemist Relationship Specialty Start Date End Date Stephanie Ogden APRN PCP - General Family Medicine 08/20/[address] [place] [address] , [address] [place] [address] documented as of this encounter
--- OUTSIDE RECORDS SUMMARY | 2021-08-28 02:06 | XMS_ITS | Encounter Summary ---
:1990 Author Organization [facility] [place] [address] Care Team Providers Name Role Phone Isabell Ogdenerinpia ESTEVES Primary Care Provider [phone] Encounter Details Date Type Department Care Team Description 10/04/2015 Hospital Encounter Laboratory Fatigue, unspecified type; [facility] [place] [address] Social History Tobacco Use Types Packs/Day Years Used Date Never Smoker Sex Assigned at Date Recorded Not on file documented as of this encounter Medications at Time of Discharge Medication Sig Dispensed Refills Start Date End Date FLUoxetine (PROZAC) 20 mg take 1 capsule by 0 Capsule mouth once daily WITH 10MG FOR A TOTAL OF 30MG FLUoxetine (PROZAC) 10 mg take 1 capsule by 0 Capsule mouth once daily WITH 20MG, FOR 30MG TOTAL zolpidem (AMBIEN) 10 mg take 1 tablet by mouth 0 09/03/2015 Tablet at bedtime if needed documented as of this encounter Plan of Treatment Not on filedocumented as of this encounter Procedures Procedure Name Priority Date/Time Associated Diagnosis Comme nts CORTISOL, SALIVA Routine 10/03/2015 11:00 PM Fatigue, unspecif ied Results for this EDT type procedure are in Weight gain the results section. documented in this encounter Results Cortisol, saliva (10/03/2015 11:00 PM EDT) P athologist Signature Juan Antonio Saliva 61 <100 ng/dL [facility]ORATORY Comment: ADDITIONAL INFORMATIO N This test was developed and its performa nce characteristics determined by [facility] in a manner co nsistent with CLIA requirements. This test has not been anita ared or approved by the U.S. Food and Drug Administration. Test Performed by: [facility] - [address] [address] Mechanic Driver: Abdi Vitale II, M.D., Ph.D. Specimen Anatomical Collection Method Collection Time Receive d Time (Source) Location / / Volume Laterality Specimen of 10/03/2015 11:00 10/16/2015 3:20 unknown material PM EDT PM EDT (specimen) Tasia Pearce MD BODY FLUIDS AND STOOLS ORDER CÉSAR Performing Organization Address City/State/[place] [address] documented in this encounter Visit Diagnoses Diagnosis Fatigue, unspecified type Weight gain Abnormal weight gain documented in this encounter Care Teams Director Smb Sales Relationship Specialty Start Date End Date Stephanie Ogden APRN PCP - General Family Medicine 08/20/[address] [place] [address] [address] [place] [address] documented as of this encounter
--- OUTSIDE RECORDS SUMMARY | 2021-08-28 02:06 | XMS_ITS | Encounter Summary ---
:1990 Author Organization [facility] [place] [address] Care Team Providers Name Role Phone Stephanie Ogden APRN Primary Care Provider [phone] Encounter Details Date Type Department Care Team Description 09/29/2015 Telephone Endocrinology at [facility] C Naima Hicks, [place] [address] Social History Tobacco Use Types Packs/Day Years Used Date Never Smoker Sex Assigned at Date Recorded Not on file documented as of this encounter Miscellaneous Notes Telephone Encounter - Naima Hicks, RN - 09/29/2015 4:41 PM EDT Received call from lab that they were unable to draw patient. States that they poked her a couple of times without success. She would like to have labs done at [facility] instead if that is okay Labs reordered as they were canceled by lab. documented in this encounter Plan of Treatment Not on filedocumented as of this encounter Visit Diagnoses Diagnosis Fatigue, unspecified type documented in this encounter Care Teams Chief Power Dispatcher Relationship Specialty Start Date End Date Stephanie Ogden APRN PCP - General Family Medicine 08/20/[address] [place] [address] , [address] [place] [address] documented as of this encounter
--- OUTSIDE RECORDS SUMMARY | 2021-08-28 02:06 | XMS_ITS | Encounter Summary ---
:1990 Author Organization [facility] [place] [address] Care Team Providers Name Role Phone Stephanie Ogden APRN Primary Care Provider [phone] Encounter Details Date Type Department Care Team Description 11/02/2018 Ancillary Procedure Radiology Library at [facility] DANIELITO Brown [address] [address] [place] [address] [phone] (Wo rk) Social History Tobacco Use Types Packs/Day Years Used Date Never Smoker Sex Assigned at Date Recorded Not on file documented as of this encounter Plan of Treatment Not on filedocumented as of this encounter Procedures Procedure Name Priority Date/Time Associated Diagnosis Comme nts FILM Routine 11/02/2018 12:00 AM Results for this LIBRARY-STORAGE EDT procedure ar e in ONLY US BREAST the results section. documented in this encounter Results Film Library Storage Only US Breast (11/02/2018 12:00 AM EDT) Specimen (Source) Anatomical Location Collection Method / Collectio n Time Received Time / Laterality Volume Narrative PATRICIO - 11/06/2018 9:05 AM EDT This exam is auto-finalizing. It's purpo se is for storage only. Stephanie Ogden APRN IMG FILM LIBRARY ORDERABLES Performing Organization Address City/State/ZIP Code Phon e Number [place], [place] documented in this encounter Visit Diagnoses Not on filedocumented in this encounter Care Teams Intervention Specialist Relationship Specialty Start Date End Date Stephanie Ogden APRN PCP - General Family Medicine 08/20/[address] [place] [address] [address] [place] [address] documented as of this encounter
--- OUTSIDE RECORDS SUMMARY | 2021-08-28 02:06 | XMS_ITS | Encounter Summary ---
:1990 Author Organization [facility] [place] [address] Care Team Providers Name Role Phone AlinStephanie DANIELITO Primary Care Provider [phone] Encounter Details Date Type Department Care Team Description 03/30/2016 Telephone Endocrinology at [facility] [place] [address] Social History Tobacco Use Types Packs/Day Years Used Date Never Smoker Sex Assigned at Date Recorded Not on file documented as of this encounter Miscellaneous Notes Telephone Encounter - Tasia Pearce MD - 04/02/2016 5:01 PM EST 25-OH-D was 28 (ref >30) - she can take an OTC vitamin D supplement 2000 units daily Vitamin B12 was 482 (ref >500) - she can take an OTC vitamin B12 supplement 1000 mcg daily. I took another look at that cortisol level result that we have from November 2015, and looks like it was a serum cortisol done at ~8am. That cortisol level was 3. Per the eD record it was supposed to have been a low dose dexamethasone suppression test. In that case, in contrast to what I said before, I do need her to do the 24 hour urine collection. If she misplaced the lab slips, we can mail her another copy of each - needs to be a 24 hr urine free cortisol AND a 24 hr urine creatinine level. Both. Please make sure she understands this. TASIA PEARCE MD [place] Cutting Machine Operatorpickling operator Section of Endocrinology [facility] After speaking with patient this nurse called pcp office and spoke with Shell who was notified of the above and also that patient has all the above instructions. Note faxed to PCP office [phone] Telephone Encounter - Cleopatra Ewing LPN - 03/30/2016 4:23 PM EST R/c to Kelly @ PCP office. Not in today spoke with Hortencia Phipps. PCP did not receive lab results. Since Dr Pearce order labs PCP needs to know if med is to prescribed. PCP will prescribe with documentation of what patient is to take for B12 and Vitamin D Level documented in this encounter Plan of Treatment Not on filedocumented as of this encounter Visit Diagnoses Not on filedocumented in this encounter Care Teams Scalehouse Attendant Relationship Specialty Start Date End Date Stephanie Ogden APRN PCP - General Family Medicine 08/20/[address] [place] [address] [address] [place] [address] documented as of this encounter
--- OUTSIDE RECORDS SUMMARY | 2021-08-28 02:06 | XMS_ITS | Encounter Summary ---
:1990 Author Organization [facility] [address] Care Team Providers Name Role Phone Stephanie Ogden APRN Primary Care Provider [phone] Encounter Details Date Type Department Care Team Description 04/07/2021 Hospital Encounter Mammography at [facility] Franchesca Brantley Fibroadenoma of [facility] DANIELITO Nunn breast, left Drive [facility] [address] GENERAL SURGERY [phone] [place] [address] Social History Tobacco Use Types Packs/Day Years [...] as of this encounter Plan of Treatment Scheduled Orders Name Type Priority Associated Diagnoses Order S chedule US Breast Limited Imaging Routine Fibroadenoma of breast, 1 Occurrences starting Left left 04/07/2021 unti l 04/07/2021 documented as of this encounter Visit Diagnoses Diagnosis Fibroadenoma of breast, left documented in this encounter Care Teams Joint Maker Machine Relationship Specialty Start Date End Date Stephanie Ogden APRN PCP - General Family Medicine 08/20/[address] [place] [address] [address] [place] [address] documented as of this encounter
--- OUTSIDE RECORDS SUMMARY | 2021-08-28 02:06 | XMS_ITS | Encounter Summary ---
:1990 Author Organization [facility] [address] Care Team Providers Name Role Phone Stephanie Ogden APRN Primary Care Provider [phone] Reason for Visit Reason Onset Date Comments Medication Refill 10/17/2015 Encounter Details Date Type Department Care Team Description 10/17/2015 Refill Endocrinology at [facility] C Naima Hicks, Obesity, unspecified [facility] Lucero green RN obesity severity, [place] [address] unspecified obesity [phone] type Social History Tobacco Use Types Packs/Day Years Used Date Never Smoker Sex Assigned at Date Recorded Not on file documented as of this encounter Miscellaneous Notes Telephone Encounter - Naima Hicks, RN - 10/17/2015 11:58 AM EDT [place] calls in, state that she went in today to lab to do LDDST, states that lab lost the lab slip for the blood draw so could not do it. documented in this encounter Plan of Treatment Not on filedocumented as of this encounter Visit Diagnoses Diagnosis Obesity, unspecified obesity severity, u nspecified obesity type documented in this encounter Care Teams Surface Room Shop Optician Relationship Specialty Start Date End Date Stephanie Ogden APRN PCP - General Family Medicine 08/20/[address] [place] [address] [address] [place], [place] [id number] documented as of this encounter
--- OUTSIDE RECORDS SUMMARY | 2021-08-28 02:06 | XMS_ITS | Encounter Summary ---
:1990 Author Organization [facility] [place] [address] Care Team Providers Name Role Phone Stephanie Ogden APRN Primary Care Provider [phone] Reason for Visit Consultation (Routine) - Closed Specialty Diagnoses / Procedures Referred By Contact Refer red To Contact Hematology and Diagnoses Fibroadenoma Rowan Galvez [facility], [place] [address], [place], [place] [id number] Fax: Referral ID Status Reason Start Date Expiration Date Visits Requ ested Visits Authorized [id number] Closed 03/17/2021 03/17/2022 1 1 Encounter Details Date Type Department Care Team Description 04/07/2021 Office Visit General Surgery at [facility] Fibr oadenoma of [facility] [place] [facility] breast, left [facility] [address] [place] [facility] [address] [place] [address] [phone] Social History Tobacco Use Types Packs/Day Years Used Date Never Smoker Sex Assigned at Date Recorded Not on file documented as of this encounter Progress Notes Franchesca Brantley APRN - 04/07/2021 1:20 PM EST Ms. Mackenzie is a 30 y.o. 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 Ms. Mackenzie first had breast imaging in June of 2018 for a palpable left breast mass. Repeat imaging in October had shown some growth and a biopsy was performed. This was significant for a fibroadenoma. Additionally, there was a 0.8 cm irregular hypoechoic area with a ill-defined thick echogenic border and some posterior acoustic shadowing but no vascularity. This is at 11:00 9 cm from the nipple. Follow up U/S of this area was done on 01/11/19. This was felt to be fat necrosis and it was recommended she had one additional U/S to ensure stability in 6 months. Bolivar has not had this repeat imaging. She will have imaging later today. She denies any skin changes, new breast masses, breast trauma, prior breast surgery or nipple discharge. She does state her left breast feels heavier. Weight stable. She has no new or concerning complaints of fatigue, cardiovascular or respiratory symptoms. All other ROS are negative. 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 Menarche began at 12. Her menses is regular HRT/OC: No Family History: Negative for breast or ovarian cancer. Social History: She does not smoke, occasional etoh . Past Medical History: Noncontributory. Past Surgical History: Noncontributory Physical Exam: She looks well and is in no apparent distress. Her skin is anicteric with good turgor. Sclera are anicteric. Her head and neck are without masses or adenopathy. Her arms have good ROM without any evidence of lymphedema. Her breasts are symmetric. Her nipples are everted. There is no axillary adenopathy on the right or the left. There are no skin changes or dimpling noted in either breast. I feel no obvious or discreet masses. Diagnostic mammogram today: FINDINGS: The breast is heterogeneously dense, which may obscure small masses. There is decreased fat component consistent with weight loss, condensing the fibroglandular elements. There are no suspicious masses, suspicious microcalcifications, or areas of architectural distortion. The fibroadenoma appears resolved with note made of the core biopsy clip in the left upper outer quadrant middle third. The area of fat necrosis in the upper left breast is no longer present (and clinically not palpable). ?? IMPRESSION No mammographic evidence of malignancy. ?? BI-RADS Category 2: Benign Findings Assessment: Clinical breast exam without discrete masses. 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 Plan: I have discussed my assessment and recommendations with Ms. Mackenzie to include occasional self-breast exams and annual clinical breast exams. Imaging and exam normal today. Based on her risk status,her next bilateral screening mammogram is due at age 40 or sooner if indicated. Ms. Mackenzie agrees to this plan. Franchesca Brantley APRN documented in this encounter Plan of Treatment Not on filedocumented as of this encounter Visit Diagnoses Diagnosis Fibroadenoma of breast, left documented in this encounter Care Teams Professor Of Voice Relationship Specialty Start Date End Date Stephanie Ogden APRN PCP - General Family Medicine 08/20/[address] [place] [address] , [address] [place] [address] documented as of this encounter
--- OUTSIDE RECORDS SUMMARY | 2021-08-28 02:06 | XMS_ITS | Encounter Summary ---
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 [address] [address] [address] [place] [address] Referral ID Status Reason Start Date Expiration Date Visits V isits Requested Authorized [id number] Closed Consult, 08/21/2015 08/20/2016 1 1 [facility] Encounter Details Date Type Department Care Team Description 09/29/2015 Office Visit Endocrinology at [facility] C Portia, Fatigue, unspecified type; [facility] Tasia [facility] [place] [address] [facility] [phone] ENDOCRINOLOGY DEPT [place], [place] [address] Social History Tobacco Use Types Packs/Day Years Used Date Never Smoker Sex Assigned at Date Recorded Not on file documented as of this encounter Last Filed Vital Signs Vital Sign Reading Time Taken Comments Blood Pressure 147/74 09/29/2015 2:53 PM EDT Pulse 76 09/29/2015 2:53 PM EDT Temperature - - Respiratory Rate - - Oxygen Saturation - - Inhaled Oxygen Concentration - - Weight 122.9 kg (271 lb) 09/29/2015 2:53 PM EDT Height 167.6 cm (5' 6) 09/29/2015 2:53 PM EDT Body Mass Index 43.74 09/29/2015 2:53 PM EDT documented in this encounter Progress Notes Tasia Pearce MD - 09/29/2015 3:00 PM EDT Endocrinology New Patient Consultation C: Referred to Endocrinology by Stephanie Ogden for further evaluation of MNG and thyroid function. HISTORY OF PRESENT ILLNESS: Ms. Bolivar Mackenzie is a 24 y.o. year old lady with history significant for MNG noted 5 years ago during with her daughter. Fatigued, gaining weight despite exercise and eating healthy, gained 100 lbs over the past 5 years. Insomnia, palpitations, extreme temperatures, feels extremely hot at times, and extremely cold at times. No hair shedding. Very dry skin, cracking on hands and feet. Feels like she has a lump in her throat, constantly feels the need to clear her throat, no hoarseness, no voice loss. +ant neck compressive sensation when lying flat. FH - many family members tested for thyroid hormone problems, all WNL. Mat aunt - lupus. Mat cousin - some thyroid problem, not sure what. Noone had a thyroidectomy. No known personal exposure to ionizing radiation. Menses very light - usually regular monthly, but occasionally will get a period just 2 weeks after aprevious period. Has constant acne breakouts, not related to menstrual cycle. Not taking OCPs. No hx blood clots. Recent TFTs: April 2015 - TSH 0.83 (ref 0.47 - 4.68), free T4 0.98 (ref 0.78 - 2.19), free T3 3.1 (ref 2.3 - 4.2) PAST MEDICAL HISTORY: Depression Insomnia MEDICATIONS: Medications 09/29/15 1966 Medication Sig Taking? FLUoxetine (PROZAC) 20 mg Capsule take 1 capsule by mouth once daily WITH 10MG FOR A TOTAL OF 30MG Yes FLUoxetine (PROZAC) 10 mg Capsule take 1 capsule by mouth once daily WITH 20MG, FOR 30MG TOTAL Yes zolpidem (AMBIEN) 10 mg Tablet take 1 tablet by mouth at bedtime if needed Yes ALLERGIES: No Known Allergies SOCIAL HISTORY: History Smoking Status ??? Never Smoker Smokeless Tobacco ??? Not on file FAMILY HISTORY: Many family members have been tested for thyroid hormone problems, all WNL. Hany aunt - lupus. Mat cousin - some thyroid problem, not sure what. No-one had a thyroidectomy. REVIEW OF SYSTEMS: All 12 systems reviewed and negative except as noted per HPI. PHYSICAL EXAM: Vitals Office Visit from 09/29/2015 in Endocrinology Weight - Scale (!) 122.9 kg (271 lb) Height 167.6 cm (5' 6) BSA (Calculated - sq m) 2.39 sq meters BMI (Calculated) 43.8 Heart Rate 76 BP 147/74 Gen: NAD, AAOx3, speaking full sentences, calm pleasant demeanor, obese habitus, gynoid fat distribution, but also with truncal adiposity, no chow facies Skin: no acanthosis nigricans, scattered acneiform lesions over face, no bruising, no purple striae,no hyperpigmentation, thick dried cracking calluses over heels, no facial plethora. Eyes: PERRL, EOMI, anicteric sclerae without injection, no proptosis or lid lag ENT: moist oral mucosa Neck: moderate thyromegaly, no superficially palpable thyroid nodules, no thyroid bruit, no lymphadenopathy Pulm: CTAB, no stridor Cardiac: reg s1s2, no m/r/g MSK: 5/5 strength in all muscle groups of the upper and lower extremities, no LE edema, +DC fat pads, + small SC fat pads Neuro: 2+ biceps and patellar DTRs, no clonus, no delay of the relaxation phase, no tremor. ASSESSMENT: 24 yo F with anterior neck compressive symptoms, 100 lb weight gain over the past 5 years, and euthyroid range TFTs as of April 2015 (about 4 months ago), who has been having a constellation of symptoms including extremely dry skin that manifests most impressively over her heels -- thick cracked skin, that sometimes bleeds when she walks. She has also been having an intermittent menstrualirregularity, with fairly light periods. As far as her TFTs, notable to me was the fact that her TSHand free T4 were both towards the lower end of normal -- this may represent a mild central HPT axis suppression (?cortisol excess) or possibly a mildly hyperfunctioning T3 producing nodule. She is having insomnia, palpitations, and waves of heat intermittently, which may go along with the latter. Insomnia can also occur with cortisol excess. The sonographic appearance of her thyroid does not show thyromegaly and is incongruent with the anterior neck fullness palpated on exam, but is suggestive of underlying jeronimo's thyroiditis The majority of her nodules are only a few millimeters in size; she had one larger nodule, 1.0cm in greatestdimension in the R-mid pole near the isthmus, which appears spongiform, and has been noted on the 2013 US report with similar dimensions; it would not meet size criteria for FNA, but if TFTs continue to show a low-normal TSH, I will consider sending her for I-123 uptake and scan to assess for hyperfunctioning nodules. I would like to screen her for Luz Maria's syndrome, considering her rapid weight gain, DC and SC fatpads, acneiform lesions, insomnia and mild menstrual irregularity; i will have her start with MN salivary cortisol x 2 and a LDDST. Suspicion is low to moderate, considering absence of purple striae, chow facies, or signs of diabetes mellitus. I will also characterize her pituitary function more with a prolactin, IGF, FSH, LH, and estradiol level. To additionally work up her fatigue, i will check heriron, B12, and vitamin D levels. PLAN: --repeat TFTs today - TSH, free T4, total T3 Orders Placed This Encounter Procedures ??? Thyroid peroxidase antibody ??? Thyroglobulin Antibody ??? Thyroid Stimulating Immunoglobulin ??? Prolactin ??? Follicle Stimulating Hormone ??? Luteinizing Hormone ??? Estradiol ??? Hemoglobin A1c ??? Insulin Like GF-1 ??? Cortisol, saliva ??? Cortisol, saliva ??? Cortisol LDDST ??? Ferritin ??? Iron and TIBC ??? Vitamin B12 ??? VIT D Total Evaluation TASIA PEARCE MD Technical Internline pilot Section of Endocrinology [facility] Tasia Pearce MD - 09/29/2015 3:00 PM EDT THYROID ULTRASOUND Date: 09/29/15 Indication: thyroid nodule Comparison: 2013 Real time images of the thyroid gland were obtained using a BK US machine. All measurements are given as AP x Transverse x Longitudinal. Right Lobe: The right lobe measures 1.6 x 2.2 x 3.9 cm, with moderately heterogeneous echotexture. 2-3 scattered tiny subcentimeter hypoechoic nodules throughout the R hemithyroid A 0.36 x 0.65 x 1.0 cm hypoechoic spongiform-appearing nodule in the R mid-pole near the isthmus (2013 - 0.5 x 0.8 x 1.0 cm) Left Lobe: The left lobe measures 0.7 x 1.6 x 4.1 cm, with mildly heterogeneous texture. Several scattered tiny subcentimeter hypoechoic nodules throughout the R hemithyroid Lateral neck: No abnormal lymph nodes were seen. Isthmus: The isthmus measures 0.38 cm in the AP dimension. Impression: No thyromegaly. Mildly-moderately heterogeneous thyroid parechyma containing scattered punctated hypoechoic nodules, and a slightly larger spongiform- appearing nodule in the R mid-pole near the isthmusthat had been previously noted on the 2013 US thyroid report, not significantly changed in size and does not meet size criteria for FNA. Tasia Pearce MD Technical Internline pilot Section of Endocrinology [facility] documented in this encounter Plan of Treatment Not on filedocumented as of this encounter Results Cortisol, saliva (10/04/2015 11:45 PM EDT) athologist Signature Juan Antonio Saliva 51 <100 ng/dL [facility] LABORATORY Comment: ADDITIONAL INFORMATIO N This test was developed and its performa nce characteristics determined by [facility] in a manner co nsistent with CLIA requirements. This test has not been anita ared or approved by the U.S. Food and Drug Administration. Test Performed by: [facility] - [address] [address] Clinical Laboratory Aide: Abdi Vitale II, M.D., Ph.D. Specimen Anatomical Collection Method Collection Time Receive d Time (Source) Location / / Volume Laterality Specimen of 10/04/2015 11:45 10/16/2015 3:20 unknown material PM EDT PM EDT (specimen) Tasia Pearce MD BODY FLUIDS AND STOOLS ORDER CÉSAR Performing Organization Address City/[facility]/ZIP Code Phon e Number [address] Cortisol, saliva (10/03/2015 11:00 PM EDT) athologist Signature Juan Antonio Saliva 61 <100 ng/dL [facility] LABORATORY Comment: ADDITIONAL INFORMATIO N This test was developed and its performa nce characteristics determined by [facility] in a manner co nsistent with CLIA requirements. This test has not been anita ared or approved by the U.S. Food and Drug Administration. Test Performed by: [facility] - [address] [address] Clinical Laboratory Aide: Abdi Vitale II, M.D., Ph.D. Specimen Anatomical Collection Method Collection Time Receive d Time (Source) Location / / Volume Laterality Specimen of 10/03/2015 11:00 10/16/2015 3:20 unknown material PM EDT PM EDT (specimen) Tasia Pearce MD BODY FLUIDS AND STOOLS ORDER CÉSAR Performing Organization Address City/[facility]/[place] [address] documented in this encounter Visit Diagnoses Diagnosis Fatigue, unspecified type Weight gain Abnormal weight gain Multinodular goiter Nontoxic multinodular goiter documented in this encounter Care Teams Airline Security Representative Relationship Specialty Start Date End Date Stephanie Ogden APRN PCP - General Family Medicine 08/20/[address] [place] [address] , [address] [place], [place] [id number] documented as of this encounter
--- OUTSIDE RECORDS SUMMARY | 2021-08-28 02:06 | XMS_ITS | Encounter Summary ---
:1990 Author Organization [facility] [place] [address] Care Team Providers Name Role Phone Stephanie Ogden APRN Primary Care Provider [phone] Encounter Details Date Type Department Care Team Description 07/06/2018 Ancillary Procedure Radiology Library at [facility] DANIELITO Brown [address] [address] [place] [address] [phone] (Wo rk) Social History Tobacco Use Types Packs/Day Years Used Date Never Smoker Sex Assigned at Date Recorded Not on file documented as of this encounter Plan of Treatment Not on filedocumented as of this encounter Procedures Procedure Name Priority Date/Time Associated Diagnosis Comme nts FILM Routine 07/06/2018 12:00 AM Results for this LIBRARY-STORAGE EDT procedure ar e in ONLY US BREAST the results section. documented in this encounter Results Film Library Storage Only US Breast (07/06/2018 12:00 AM EDT) Specimen (Source) Anatomical Location Collection Method / Collectio n Time Received Time / Laterality Volume Narrative RAD - 11/06/2018 9:04 AM EDT This exam is auto-finalizing. It's purpo se is for storage only. Stephanie Ogden APRN IMG FILM LIBRARY ORDERABLES Performing Organization Address City/State/ZIP Code Phon e Number [place], [place] documented in this encounter Visit Diagnoses Not on filedocumented in this encounter Care Teams Tower Foreman Relationship Specialty Start Date End Date Stephanie Ogden APRN PCP - General Family Medicine 08/20/[address] [place] [address] [address] [place] [address] documented as of this encounter
--- OUTSIDE RECORDS SUMMARY | 2021-08-28 02:06 | XMS_ITS | Encounter Summary ---
:1990 Author Organization [facility] [place] [address] Care Team Providers Name Role Phone AlinStephanie DANIELITO Primary Care Provider [phone] Reason for Visit Reason Onset Date Comments Results 11/13/2015 Encounter Details Date Type Department Care Team Description 11/13/2015 Telephone Endocrinology at [facility] Naima [place]orton[place] [address] Social History Tobacco Use Types Packs/Day Years Used Date Never Smoker Sex Assigned at Date Recorded Not on file documented as of this encounter Miscellaneous Notes Telephone Encounter - Tasia Pearce MD - 11/18/2015 10:31 AM EDT External lab results from 10/15 & 11/11/15 received and reviewed. IGF-1 245 Normal A1c <5% Normal TPO 0.4 Normal TSI <1 Normal PRL 11.5 Normal FSH 6.8 Normal LH 5.3 Normal E2 54 Normal Ferritin 62 Normal B12 483 Mildly low 25OH-D 28 Mildly low 1,25-D 49 Normal Not ordered but done by lab. Tg Ab Ordered, but not run by lab. 10/22/15 - MN salivary cortisols 51, 61 (ref <100) 11/11/15 - LDDST - 8am cortisol 3 ug/dL (abnormal, did not suppress to <1.8) I would like to ascertain whether she timed the LDDST appropriately; I may have her repeat it along with a dexamethasone level. I will also have her do a 24 hour urine collection for urine free cortisol measurement. I called her cell number and left voice mail for her to call back sometime tomorrow morning to discuss further, at which time i may be able to take her call directly if between 9am and noon. Of note her work number listed in the system is no longer her workplace. Telephone Encounter - Naima Hicks RN - 11/13/2015 10:53 AM EDT Bol[place]ar calls in and states that she completed a bunch of blood work and testing a couple of weeks ago. Is hoping to get results. Let Bolivar know will send message to Dr Pearce to review BW. Message forwarded documented in this encounter Plan of Treatment Not on filedocumented as of this encounter Visit Diagnoses Not on filedocumented in this encounter Care Teams Animal Care Giver Relationship Specialty Start Date End Date Stephanie Ogden APRN PCP - General Family Medicine 08/20/[address] [place] [address] , [address] [place] [address] documented as of this encounter
--- OUTSIDE RECORDS SUMMARY | 2021-08-28 02:06 | XMS_ITS | Encounter Summary ---
:1990 Author Organization [facility] [place] [address] Care Team Providers Name Role Phone Stephanie Ogden APRN Primary Care Provider [phone] Encounter Details Date Type Department Care Team Description 11/16/2018 Hospital Encounter [place] [place] [facility] [place]atsy Gibson, Abnormal finding on [facility] MD breast imaging [facility] [address] NUCLEAR MEDICINE [phone] [place] [address] Social History Tobacco Use Types Packs/Day Years [...] Diagnosis Comme nts MAMMO BREAST US Routine 11/16/2018 1:47 PM Abnormal finding on Results for this LIMITED LEFT EDT breast imaging procedure are in the results section. documented in this encounter Results US Breast Limited Left (11/16/2018 1:47 PM EDT) Anatomical Region Laterality Modality Breast Left Mammography Specimen (Source) Anatomical Location Collection Method / Collectio n Time Received Time / Laterality Volume Impressions 11/16/2018 3:19 PM EDT Left breast: 1. 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 Left breast lesion 1 per 2. ??7 x 8 mm ill-defined LEFT breast lexie cency at the 11 o'clock position 9 cm from the nipple on diagnostic mammograph y, and without vascularity on ultrasound, favored to represent fat nec rosis. RECOMMENDATION: * ??LEFT breast mass at the 2 o'clock po sition 5 cm from the nipple - BI-RADS Category 4: Suspicious Finding - Biopsy Should Be Considered. These findings and recommendations discussed with the patie nt and her attendant significant other, she elected to proceed. She was subseque ntly consented, procedure to follow. Left breast lesion 1. * ??LEFT breast lucency at the 11 o'cloc k position 9 cm from the nipple - BI-RADS Category 3: Probably Benign Finding-shor t interval follow-up or continued surveillance mammography. Short interval follow-up mammography/ultrasound has been scheduled. The patient concurs. I have personally reviewed the image(s) and the residents interpretation and agree with the findings, Braydon Smart at 11/16/2018 3:19 PM Thank you for letting us participate in the care of this patient. For questions regarding this report, please contact e number below. ? Narrative 11/16/2018 3:19 PM EDT EXAMINATION: US ??BREAST LIMITED LEFT, MAMMO DIAGNOSTIC CAD AND MICHAEL BILATERAL CLINICAL HISTORY: Evaluation of two LEFT breast lesions seen on mammography and ultrasound dated 11/07/2018 and 11/09/2018 , respectively, at outside institution. TECHNIQUE AND VIEWS OBTAINED: * ??2D digitally acquired Craniocaudal ( CC) and Medio-lateral oblique (MLO) views were obtained of the bilateral breasts, as well as spot compression tangential views of the lateral breast. 3D tomosynt hesis images were obtained in addition to 2D images. Computer Assisted Detectio n was used. Patient directed BB markers were placed, at the sites of clinical co ncern. * ??Grayscale and color Doppler sonograp hy of the left breast at the 2:00 position 5 cm from the nipple and the 11 :00 position 9 cm from the nipple were performed. COMPARISONS: Ultrasound breast on 07/06/2018 and 2018 BREAST DENSITY: There are scattered areas of fibroglandu lar density FINDINGS MAMMOGRAPHY: LEFT breast: At approximately 2:00, 5 cm from the nipple, there is a 5 x 10 mm macrolobulated mass. This finding design ated left breast lesion 1 on outside interpretation, and previously described . At the second indicated area, there is a 7 x 8 mm subtle focal asymmetry at the 11 o'clock position 9 cm from the nipple, immediately subcutaneous, and be st visualized on the spot tangential view. No additional findings of the left breast. RIGHT breast: No suspicious masses, susp icious microcalcifications, or areas of architectural distortion. A tiny well-ci rcumscribed and benign-appearing masses appreciated. FINDINGS ULTRASOUND: Corresponding to the LEFT breast lesion detected on mammography at the 2 o'clock position 5 cm from the nipple, there is a 5 x 10 mm macrolobulated and mildly hypoechoic parallel mass. Mild irregular ities of the echogenic margin are appreciated on real-time. Left breast le padilla 1, 2:00, 5 cm from the nipple. Corresponding to the LEFT breast lesion detected on mammography at the 11 o'clock position 9 cm from the nipple, t here is a 5 x 7 x 8 mm ill-defined immediately subcutaneous hypoechoic find ing with no evidence of vascularity on color Doppler. Patsy Gibson MD IMG MAMMO ORDERABLES documented in this encounter Visit Diagnoses Diagnosis Abnormal finding on breast imaging Other (abnormal) findings on radiologica l examination of breast documented in this encounter Care Teams Statement Distribution Clerk Relationship Specialty Start Date End Date Stephanie Ogden APRN PCP - General Family Medicine 08/20/[address] [place] [address] , [address] [address] [place] [address] documented as of this encounter
--- OUTSIDE RECORDS SUMMARY | 2021-08-28 02:06 | XMS_ITS | Encounter Summary ---
:1990 Author Organization [facility] [place] [address] Care Team Providers Name Role Phone Stephanie Ogden APRN Primary Care Provider Encounter Details Date Type Department Care Team Description 11/16/2018 Hospital Encounter Mammography at [facility] Patsy Gibson, Abnormal finding on [facility] MD breast imaging [facility] [address] NUCLEAR MEDICINE [phone] [place] [address] Social History Tobacco Use Types Packs/Day Years [...] encounter Procedures Procedure Name Priority Date/Time Associated Comments Diagnosis MAMMO DIAGNOSTIC Routine 11/16/2018 2:40 PM Abnormal finding o n Results for this WITHOUT CAD LEFT EDT breast imaging procedure are in the results section. documented in this encounter Results Mammo Diagnostic Without Cad Left (11/16/2018 2:40 PM EDT) Anatomical Region Laterality Modality Breast [...] obtained using a 14-gauge automated device. A [employer] 14G marker clip was chen archana. The clip was in satisfactory position both sonographically and at fol low-up cranio-caudal and true lateral digital mammography, 0 mm of displacemen t. COMPLICATIONS: None. PROCEDURAL ATTESTATION: Resident: José Miguel Avlarez performed the procedure with the [facility] ent observing. IMAGING DIFFERENTIAL DIAGNOSIS: Fibroadenoma, rule out phyllodes. PATHOLOGIC DIAGNOSIS: Fibroadenoma Patsy Gibson MD IMG MAMMO ORDERABLES documented in this encounter Visit Diagnoses Diagnosis Abnormal finding on breast imaging Other (abnormal) findings on radiologica l examination of breast documented in this encounter Care Teams Instructional Technology Director Relationship Specialty Start Date End Date Stephanie Ogden APRN PCP - General Family Medicine 08/20/[address] [place] [address] , [address] [place] [address] documented as of this encounter
--- OUTSIDE RECORDS SUMMARY | 2021-08-28 02:06 | XMS_ITS | Clinical Summary ---
:1990 Author Organization [facility] [place] [address] Care Team Providers Name Role Phone Stephanie Ogden APRN Primary Care Provider [phone] Allergies No known active allergies Medications Medication Sig Dispensed Refills Start Date End Date Status FLUoxetine (PROZAC) 20 take 1 capsule 0 09/03/2015 Active mg Capsule by mouth once daily WITH 10MG FOR A TOTAL OF 30MG FLUoxetine (PROZAC) 10 take 1 capsule 0 08/12/2015 Active mg Capsule by mouth once daily WITH 20MG, FOR 30MG TOTAL zolpidem (AMBIEN) 10 mg take 1 tablet by 0 6 Active Tablet mouth at bedtime if needed cyanocobalamin 1,000 mcg Take 1,000 mcg 0 Active Tablet by mouth daily. cholecalciferol, Vitamin Take 2,000 Units 0 Active D3, 2,000 unit Capsule by mouth daily. Active Problems No known active problems Social History Tobacco Use Types Packs/Day Years Used Date Never Smoker Sex Assigned at Date Recorded Not on file Last Filed Vital Signs Vital Sign Reading [...] Mass Index 43.74 09/29/2015 2:53 PM EDT Plan of Treatment Health Maintenance Due Date Last Done Comments Covid-19 Vaccine (#1) 11/24/1995 HIV screen 2008 Hepatitis C Screening 2008 Tdap adult 2009 Tetanus vaccine 2009 HPV test 2020 PAP Smear 2020 Influenza (Flu) vaccine (1 of 1 - Influenza standard 10/22/2021 series) Medical Devices Implanted Type Area Small Products I Assembler Device Shelf Model / Identifier Expiration Serial / Lot Date Breast Clip-11/16/2018 Breast Left: Bard - [id number] ULTRASOUND ENHANCED FLORES / Implanted: 11/16/2018 by Braydon Smart MD (Quantity not on file) Clip Breast / [id number] Description: FLORES Insurance Payer Benefit Plan / Subscriber ID Effective Dates Phone Addre ss Type Group [place] [id number] 2015-Ang [phone] [address] PRIMARY CARE t [address] [facility] [phone] (Work) [phone] Care Teams Supervisor Commissary Production Relationship Specialty Start Date End Date Stephanie Ogden APRN PCP - General Family Medicine 08/20/[address] [place] [address] , [address] [place], [place] [id number]
--- OUTSIDE RECORDS SUMMARY | 2021-08-28 02:06 | XMS_ITS | Encounter Summary ---
:1990 Author Organization [facility] [place] [address] Care Team Providers Name Role Phone Stephanie Ogden APRN Primary Care Provider [phone] Encounter Details Date Type Department Care Team Description 03/17/2021 Orders Only General Surgery at [facility] Fibr oadenoma of breast, [facility] TRAN[facility]ER CAR OPERATOR left Formerly [facility] [address] [place] GENERAL SURGERY [id number] [place] [address] [phone] Social History Tobacco Use Types Packs/Day Years Used Date Never Smoker Sex Assigned at Date Recorded Not on file documented as of this encounter Plan of Treatment Scheduled Orders Name Type Priority Associated Diagnoses Order S chedule US Breast Limited Imaging Routine Fibroadenoma of breast, Expected: 03/17/2021, Left left Expires: 2021 documented as of this encounter Visit Diagnoses Diagnosis Fibroadenoma of breast, left documented in this encounter Care Teams Ad Taker Relationship Specialty Start Date End Date Stephanie Ogden APRN PCP - General Family Medicine 08/20/[address] [place] [address] , [address] [address] [place], [place] [id number] documented as of this encounter
--- OUTSIDE RECORDS SUMMARY | 2021-08-28 02:06 | XMS_ITS | Encounter Summary ---
:1990 Author Organization [facility] [place] [address] Care Team Providers Name Role Phone Stephanie Ogden APRN Primary Care Provider [phone] Encounter Details Date Type Department Care Team Description 11/16/2018 Hospital Encounter Mammography at [facility] Patsy Gibson, Abnormal finding on [facility] MD breast imaging [facility] [address] NUCLEAR MEDICINE [phone] [place] [address] Social History Tobacco Use Types Packs/Day Years [...] Priority Date/Time Associated Comments Diagnosis MAMMO DIAGNOSTIC CAD Routine 11/16/2018 2:03 PM Abnormal findi ng on Results for this AND MICHAEL BILATERAL EDT breast imaging procedu re are in the results section. documented in this encounter Results Mammo Diagnostic CAD and Mihcael Bilateral (11/16/2018 2:03 PM EDT) Anatomical Region Laterality Modality Breast Bilateral Mammography Specimen (Source) Anatomical Location Collection Method [...] report, please contact e number below. ? Electronically signed by: Braydon Smart [facility] ([phone]), at 11/16/2018 3:19 PM Narrative 11/16/2018 3:19 PM EDT EXAMINATION: US [...] breast documented in this encounter Care Teams Cod Clerk Relationship Specialty Start Date End Date Stephanie Ogden APRN PCP - General Family Medicine 08/20/[address] [place] [address] , [address] [address] [place] [address] documented as of this encounter
--- OUTSIDE RECORDS SUMMARY | 2021-08-28 02:06 | XMS_ITS | Encounter Summary ---
:1990 Author Organization [facility] [place] [address] Care Team Providers Name Role Phone Stephanie Ogden APRN Primary Care Provider [phone] Encounter Details Date Type Department Care Team Description 04/07/2021 Hospital Encounter Mammography at [facility] Fibroadenoma of [facility] DANIELITO Nunn breast, left Drive [facility] [address] GENERAL SURGERY [phone] [place] [address] Social History Tobacco Use Types Packs/Day Years [...] Priority Date/Time Associated Diagnosis Comme nts MAMMO DIAGNOSTIC Routine 04/07/2021 2:28 PM Fibroadenoma of Re sults for this CAD AND MICHAEL LEFT EST breast, left procedure are in the results section. documented in this encounter Results Mammo Diagnostic Cad and Michael Left (04/07/2021 2:28 PM EST) Anatomical Region Laterality Modality Breast Left Mammography Specimen (Source) Anatomical Location Collection Method / Collectio n Time Received Time / Laterality Volume Impressions 04/07/2021 3:29 PM EST No mammographic evidence of malignancy. BI-RADS Category 2: Benign Findings * ??Regular screening mammograms startin g between age 40 and 50 reduces the risk of from breast cancer. * ??All screening tests have both risks and benefits. These risks and benefits should be assessed for each individual p atient through discussion with their provider to determine their preferred east cancer screening schedule. * ??Women should report any breast brizuela es to a health care provider right away. * ??Some women, because of their family history, a genetic tendency, or other factors, should be screened with annual breast MRI as well as with mammograms. (The number of women who fall into this category is very small). Patients and health care providers should discuss the history of each patient to decide if earlier screening and/or breast MRI are appropriate. * ??Screening should continue as long as a woman is in good health and is expected to live 10 years or longer. * ??Screening mammography may not detect 10-15% of breast cancers. Thank you for letting us participate in the care of this patient. ??If you are a health care provider and have any questi ons regarding this report, please contact the number below. ??For patients who have questions please contact the health lawn care professional that requested your imaging first. ? Electronically signed by: Breonna hallman MD, [facility] ([phone]), at 04/07/2021 3:29 PM Narrative 04/07/2021 3:29 PM EST EXAMINATION: MAMMO DIAGNOSTIC CAD AND MICHAEL LEFT CLINICAL HISTORY: see notes from imaging done in 2019 The patient had missed a short-term foll ow-up for probable fat necrosis. This is to exclude any suspicious change in the left breast. TECHNIQUE: CC and MLO views were obtained of the le ft breast. 2-D direct digital capture, 3-D tomosynthesis and computer aided det ection (CAD) were used.. COMPARISON: 11/16/2018 FINDINGS: The breast is heterogeneously dense, whi ch may obscure small masses. There is decreased fat component consistent with weight loss, condensing the fibroglandular elements. There are no melton spicious masses, suspicious microcalcifications, or areas of archite ctural distortion. The fibroadenoma appears resolved with note made of the c ore biopsy clip in the left upper outer quadrant middle third. The area of fat n ecrosis in the upper left breast is no longer present (and clinically not palpa ble). Breonna Wynn MD IMG MAMMO ORDERABLES documented in this encounter Visit Diagnoses Diagnosis Fibroadenoma of breast, left documented in this encounter Care Teams Press Tender Incendiary Grenade Relationship Specialty Start Date End Date Stephanie Ogden APRN PCP - General Family Medicine 08/20/[address] [place] [address] [address] [place] [address] documented as of this encounter
--- OUTSIDE RECORDS SUMMARY | 2021-08-28 02:06 | XMS_ITS | Encounter Summary ---
:1990 Author Organization [facility] [place] [address] Care Team Providers Name Role Phone Stephanie Ogden APRN Primary Care Provider [phone] Encounter Details Date Type Department Care Team Description 04/16/2016 External Results Endocrinology at [facility] Tasia Hendrickson, Oligomenorrhea [facility] [place] [address] [facility] [phone] ENDOCRINOLOGY [place], [place] [address] Social History Tobacco Use Types Packs/Day Years Used Date Never Smoker Sex Assigned at Date Recorded Not on file documented as of this encounter Plan of Treatment Not on filedocumented as of this encounter Procedures Procedure Name Priority Date/Time Associated Diagnosis Comme nts CREATININE, URINE, 24 Routine 04/09/2016 Oligomenorrhea Resu lts for this HOUR procedure are i n the results section . documented in this encounter Results (ABNORMAL) Creatinine, urine, 24 hour (04/09/2016) P athologist Signature U Creatinine 158 (EXTERNAL/ ABN) Specimen (Source) Anatomical Location Collection Method / Collectio n Time Received Time / Laterality Volume Urine specimen 04/09/2016 (specimen) Narrative This result has an attachment that is no t available. Tasia Pearce MD URINE ORDERABLES documented in this encounter Visit Diagnoses Diagnosis Oligomenorrhea Scanty or infrequent menstruation documented in this encounter Care Teams Program Engineer Relationship Specialty Start Date End Date Stephanie Ogden APRN PCP - General Family Medicine 08/20/[address] [place] [address] , [address] [place] [address] documented as of this encounter
--- OUTSIDE RECORDS SUMMARY | 2021-08-28 02:07 | XMS_ITS | Clinical Summary ---
:1990 Author Organization [facility] Address [address] [place] [address] Care Team Providers Name Role Phone Unknown, Provider Primary Care Provider Social History Tobacco Use Types Packs/Day Years Used Date Never Assessed Sex Assigned at Date Recorded Not on file Plan of Treatment Health Maintenance Due Date Last Done Comments COVID-19 Vaccine (1) 11/24/1995 Hepatitis C Screen Completed 04/11/2019 Insurance Payer Benefit Plan Subscriber ID Effective Phone Address Typ e / Group Dates MEDICAID ACO MEDICAID ACO [id number] 2021-Pres [phone] [address] Medicaid [place] ent [address] [facility] [id number] [place] Personal/Famil Self [address] (Home) [place] [id number] [place] Personal/Famil Self [address] (Home) [place] [phone] [place] Personal/Famil Self [address] (Home) [place] [id number] [place] Mack[place] Personal/Famil Self [address] (Home) [place] [id number] [place] Mack[place] Personal/Famil Self [address] (Home) [place] [address] [place] Mackenzie Personal/Famil Self 1990 [address] (Home) [place] [phone] [place] Mack[place] Personal/Famil Self 1990 [address] (Home) [place] [id number] Care Teams Radiation Therapy Technician Relationship Specialty Start Date End Date Unknown, Provider, PCP - General 05/14/15
--- OUTSIDE RECORDS SUMMARY | 2021-08-28 02:07 | XMS_ITS | Encounter Summary ---
:1990 Author Organization [facility] Address [address] [place] [address] Care Team Providers Name Role Phone Unknown, Provider Primary Care Provider Encounter Details Date Type Department Care Team Description 04/11/2019 Lab Requisition [facility] Unknown, Provider, Pathology & Laboratory [facility] [address] [place] [address] [place] [address] Social History Tobacco Use Types Packs/Day Years Used Date Never Assessed Sex Assigned at Date Recorded Not on file documented as of this encounter Plan of Treatment Not on filedocumented as of this encounter Procedures Procedure Name Priority Date/Time Associated Diagnosis Comme nts RUBELLA IGG Routine 04/11/2019 11:30 Results for this ANTIBODY EST procedure are i n the results section. VARICELLA IGG Routine 04/11/2019 11:30 Results fo r this ANTIBODY EST procedure are i n the results section. documented in this encounter Results VARICELLA IGG ANTIBODY (04/11/2019 11:30 EST) Varicella IgG Ab PositiveComment: See Note [facility] Presence of LABORATORY SERVICES detectable Varicella Zoster virus IgG antibodies. Specimen Blood - Venous blood (substance) Performing Organization Address [facility] Code Phon e Number [facility] LABORATORY [address] [place] [address] SERVICES RUBELLA IGG ANTIBODY (04/11/2019 11:30 EST) Rubella IgG Ab PositiveComment: See Note [facility] Positive for IgG LABORATORY SERVICES antibodies to Rubella virus. Specimen Blood - Venous blood (substance) Performing Organization Address [facility] Phon e Number [facility] LABORATORY [address] [place] [address] SERVICES documented in this encounter Visit Diagnoses Not on filedocumented in this encounter Care Teams Manager Merchandise Relationship Specialty Start Date End Date Unknown, Provider, PCP - General 05/14/15 documented as of this encounter
--- OUTSIDE RECORDS SUMMARY | 2021-08-28 02:07 | XMS_ITS | Encounter Summary ---
:1990 Author Organization [facility] Address [address] [place] [address] Care Team Providers Name Role Phone Unknown, Provider Primary Care Provider Encounter Details Date Type Department Care Team Description 04/10/[address] [facility] Martin Romano CNM Encounter for other Pathology & [address] [facility] Laboratory Medicine [place], [place] [address] [facility] [address] [place], [place] [address] Social History Tobacco Use Types Packs/Day Years Used Date Never Assessed Sex Assigned at Date Recorded Not on file documented as of this encounter Plan of Treatment Not on filedocumented as of this encounter Procedures Procedure Name Priority Date/Time Associated Diagnosis Comme nts PAP TEST Today 04/09/2019 11:40 EST Encounter for other Results for this general examination procedur e are in the results section. documented in this encounter Results PAP TEST (04/09/2019 11:40 EST) Specimens A. Cervix and/or [facility] Endocervix, , CENTER ThinPrep Imaging LABORATORY System with Manual SERVICES Evaluation Specimen Adequacy Satisfactory for [facility] Evaluation - CENTER transformation zone LABORATORY component present SERVICES General Negative for [facility] Categorization intraepithelial CENTER lesion or malignancy LABORATORY SERVICES Descriptive Reactive cellular [facility] Diagnosis changes associated CENTER with inflammation LABORATORY present (includes SERVICES repair). Attestation By the signature below, the attending physician certifies that they have personally conducted a gross and/or microscopic [facility] Electronically examination of the described specimens and rendered or confirmed the above diagnosis. CENTER signed by EDIN Rao MD on SERVICES 04/18/2019 at 12 43 Clinical History NONE [facility] LABORATORY SERVICES Scanned Images [facility] LABORATORY SERVICES Specimen Pap Test - Cervix and/or Endocervix Performing Organization Address City/State/ZIP Code Phon e Number [facility] LABORATORY [address] [place] [address] SERVICES documented in this encounter Visit Diagnoses Diagnosis Encounter for other general examination documented in this encounter Care Teams Discovery Manager Relationship Specialty Start Date End Date Unknown, Provider, PCP - General 05/14/15 documented as of this encounter
--- OUTSIDE RECORDS SUMMARY | 2021-08-28 02:07 | XMS_ITS | Encounter Summary ---
:1990 Author Organization [facility] Address [address] [place] [id number] Care Team Providers Name Role Phone Unknown, Provider Primary Care Provider Reason for Visit Reason Comments No Show Referral (Routine) - Closed Specialty Diagnoses / Procedures Referred By Contact Refer red To Contact Rheumatology Diagnoses Pain in unspecified joint Rowan Galvez, Ep5 Rheumatology [address] [place] [address] [place] [address] Referral ID Status Reason Start Date Expiration Date Visits Requ ested Visits Authorized [id number] Closed 1 1 Encounter Details Date Type Department Care Team Description 06/26/2019 Telemedicine [facility] Jennifer Patel v, MD Polyarthralgia Rheumatology & [address] [place] [address] (Primary Dx ) Immunology - [address], [address] [place], [place] [address] [place] [phone] Social History Tobacco Use Types Packs/Day Years Used Date Never Assessed Sex Assigned at Date Recorded Not on file documented as of this encounter Progress Notes Jesus Patel MD - 06/26/2019 1020 EDT Patient not seen in ZOOM visit. Called patient x2, could not reach, left voicemessage, informing that patient could call clinic to reschedule appointment. Jesus Patel MD documented in this encounter Plan of Treatment Not on filedocumented as of this encounter Visit Diagnoses Diagnosis Polyarthralgia - Primary Pain in joint, multiple sites documented in this encounter Care Teams Go Cart Mechanic Relationship Specialty Start Date End Date Unknown, Provider, PCP - General 05/14/15 documented as of this encounter
--- OUTSIDE RECORDS SUMMARY | 2021-08-28 02:07 | XMS_ITS | Encounter Summary ---
:[address] [facility] Address [address] [place] [address] Care Team Providers Name Role Phone Unknown, Provider Primary Care Provider Encounter Details Date Type Department Care Team Description 04/09/2019 Lab Requisition [facility] Unknown, Provider, Pathology & Laboratory [facility] [address] [facility] [place] [address] Social History Tobacco Use Types Packs/Day Years Used Date Never Assessed Sex Assigned at Date Recorded Not on file documented as of this encounter Plan of Treatment Not on filedocumented as of this encounter Procedures Procedure Name Priority Date/Time Associated Comments Diagnosis CHLAMYDIA/N. Routine 04/09/2019 11:40 Results for this GONORRHOEAE AMPLIFIED EST proced ure are in RNA the results section. documented in this encounter Results CHLAMYDIA/N. GONORRHOEAE AMPLIFIED RNA (04/09/2019 11:40 EST) Pathologist Sig nature Gonococcus Result Negative Negative [facility] Chlamydia Result Negative Negative [facility] Specimen Swab - Entire endocervix (body structure ) Performing Organization Address City/State/ZIP Code Phon e Number [facility] [address] [place] [address] SERVICES documented in this encounter Visit Diagnoses Not on filedocumented in this encounter Care Teams Cream Buyer Relationship Specialty Start Date End Date Unknown, Provider, PCP - General 05/14/15 documented as of this encounter
--- OUTSIDE RECORDS SUMMARY | 2021-08-28 02:07 | XMS_ITS | Encounter Summary ---
:1990 Author Organization [facility] Address [address] [place] [address] Care Team Providers Name Role Phone Unknown, Provider Primary Care Provider Encounter Details Date Type Department Care Team Description 04/11/2019 Lab Requisition [facility] Unknown, Provider, Pathology & Laboratory [facility] [address] [facility] [place] [place] [address] Social History Tobacco Use Types Packs/Day Years Used Date Never Assessed Sex Assigned at Date Recorded Not on file documented as of this encounter Plan of Treatment Not on filedocumented as of this encounter Procedures Procedure Name Priority Date/Time Associated Comments Diagnosis HIV 1/2 ANTIGEN AND Routine 04/11/2019 11:30 Resu lts for this ANTIBODY, 4TH EST procedure are in GENERATION the results section. documented in this encounter Results HIV 1/2 ANTIGEN AND ANTIBODY, 4TH GENERATION (04/11/2019 11:30 EST) HIV 1 and 2 Negative Negative [facility] Antibody/p24 Comment: LABORATORY Antigen, 4th SERVICES Generation If acute HIV-1 infection is suspected in a high risk ??patient, submit plasma specimen for HIV-1 RNA quantitation test. Fourth Generation assay performed on the [employer]. Specimen Blood - Venous blood (substance) Performing Organization Address City/State/ZIP Code Phon e Number [facility] [address] [place] [address] SERVICES documented in this encounter Visit Diagnoses Not on filedocumented in this encounter Care Teams Plate Put In Worker Relationship Specialty Start Date End Date Unknown, Provider, PCP - General 05/14/15 documented as of this encounter
--- OUTSIDE RECORDS SUMMARY | 2021-08-28 02:07 | XMS_ITS | Encounter Summary ---
:1990 Author Organization [facility] Address [address] [place] [address] Care Team Providers Name Role Phone Unknown, Provider Primary Care Provider Encounter Details Date Type Department Care Team Description 10/12/2019 Lab Requisition [facility] Outr Resulting Lab, Pathology & Laboratory Provider [facility] [address] [place] [address] Social History Tobacco Use Types Packs/Day Years Used Date Never Assessed Sex Assigned at Date Recorded Not on file documented as of this encounter Plan of Treatment Not on filedocumented as of this encounter Procedures Procedure Name Priority Date/Time Associated Diagnosis Comme nts COVID-19 TEST [facility] Today 10/12/2019 19:55 LAB PCR EDT COVID-19 TESTING Routine 10/12/2019 19:55 Results for this EDT procedure are i n the results section. documented in this encounter Results COVID-19 TEST [facility] LAB PCR (10/12/2019 19:55 EDT) Specimen Swab - Entire nasopharynx (body structur e) Performing Organization Address City/State/ZIP Code Phon e Number [facility] [address] [place] [address] SERVICES COVID-19 TESTING (10/12/2019 19:55 EDT) COVID-19 rt-PCR Negative Negative [facility] Result Comment: [facility] This test has not been FDA c leared or approved. This test has been authorized by FDA under an EUA for use by authorized laboratories. This test has been authorized only for detection of nucleic acid fro SERVICES m 2019-nCoV, not for any oth er viruses or pathogens. This test is only authorized for the duration of the declaration that circumstances exist justifying the authorization of emergency use of in vitro d iagnostic tests for detectio n and/or diagnosis of 2019-nCoV under section 564(b)(1) of Act, 21 U.S.C ?? 360bbb-3(b) (1), unless the authorization is terminated or revoked sooner. Negative results do not prec lude 2019-nCoV infection and should not be used as the sole basis for treatment or other patient management decisions. Negative results must be combined with clinical observa tions, patient history, and epidemiological informatio n. Performed on the [employer] Fusion instrument Performing Lab [place] [facility] Lab [facility] Specimen Swab Performing Organization Address City/State/ZIP Code Phon e Number [facility] [address] [place] [address] SERVICES documented in this encounter Visit Diagnoses Not on filedocumented in this encounter Care Teams Territory Account Executive Relationship Specialty Start Date End Date Unknown, Provider, PCP - General 05/14/15 documented as of this encounter
--- OUTSIDE RECORDS SUMMARY | 2021-08-28 02:07 | XMS_ITS | Encounter Summary ---
:1990 Author Organization [facility] Address [address] [place] [address] Care Team Providers Name Role Phone Unknown, Provider Primary Care Provider Encounter Details Date Type Department Care Team Description 05/14/2015 Results Only [facility] Desai NP [phone] [address] [place] [address] (Wo rk) Social History Tobacco Use Types Packs/Day Years Used Date Never Assessed Sex Assigned at Date Recorded Not on file documented as of this encounter Plan of Treatment Not on filedocumented as of this encounter Procedures Procedure Name Priority Date/Time Associated Diagnosis Comme nts PAP TEST- RESULT Routine 05/14/2015 0:00 EDT Resu lts for this ONLY procedure are i n the results section. documented in this encounter Results PAP TEST- RESULT ONLY (05/14/2015 0:00 EDT) Pathology Report: CYTOPATHOLOGY REPORT [facility] Reports generated via electronic interface contain janet ginal data; SERVICES however they are lacking the format of the original re port. Caution should be taken when reading/interpreting unfo rmatted reports. Name: ? TANIA THURSTON ? Accession #: ? [id number] ? : ? 1990 (Age: 2 4) ??F ?Collect Date: ? 05/14/2015 ? Location: ? [facility] ? Receive Date: ? 05/15/19 16 ? Provider: ABRAHAM LAUREANO CAR WASH MANAGER Copy to: ? Final Report SPECIMEN ADEQUACY ? Satisfactory for Evaluation - transformation zone component absent GENERAL CATEGORIZATION ? Negative for Intraepithelial Lesion or Malignan cy ?? Last Menstrual Period: 04/28/15 Hormonal/Contraceptive status: None Other: Additional clinical i nformation: no hx of abnormal pap, last pap 4 years ago WNL Specimen/Source: ??Pap Test, Cervix/Endocervix, ThinPr ep Imaging System with manual evaluation Document reviewed and electronically signed by: ? Aaliyah Yuan, HONEY(ASCP) ? Report ??Date: 05/21/2015 12:51 HPV with Pap Test ? Date Ordered: ? 05/21/2015 ? Status: ?? Signed Out ?Date Complete: ? 05/23/2015 ? By: ??Sys tem Interface ? Date Reported: ? 05/23/2015 ? Interpretation RESULT: Positive for high or intermediate risk HPV. E6 OR E7 mRNA from one or more types of HPV types 16,1 8,31, 33,35,39,45,51,52,56,58,59,66, and 68 is detected by valve maker mediated amplification. High and intermediate risk HPV types are associated wi th most squamous intraepithelial lesions and cervical can cers. Comments Document reviewed and electronically signed by: ? System Interface ? Report date: 05/23/2015 By the signature above, the attending physician certif ies that he/she has personally conducted a gross and/or microscopic examin ation of the described specimens and rendered or confirmed the above diagnosi s. End of Report Specimen Performing Organization Address City/State/ZIP Code Phon e Number [facility] [address] [place] [address] SERVICES documented in this encounter Visit Diagnoses Not on filedocumented in this encounter Care Teams Steel Cutter Relationship Specialty Start Date End Date Unknown, Provider, PCP - General 05/14/15 documented as of this encounter
[2021-08-28 10:44] LABS: Kit/Specimen SENT
[2021-08-28 10:57] LABS: Abs Immature Grans 0.02 10^3/uL (0.0-0.06); Absolute Basophil Count 0.02 10^3/uL (0.0-0.2); Absolute Eosinophil Count 0.09 10^3/uL (0.0-0.7); Absolute Lymphocyte Count 0.85 10^3/uL (1.2-3.4); Absolute Monocyte Count 0.35 10^3/uL (0.1-0.8); Absolute Neutrophil Count 3.86 10^3/uL (1.2-6.7); Basophils % 0.4; Eosinophils % 1.7; HCT 36.5 % (36.0-46.0); HGB 12.1 g/dL (11.2-15.7); Immature Grans % 0.4; Lymphocytes % 16.4; MCH 29.7 pg (27.0-33.0); MCHC 33.2 % (32.0-36.0); MCV 90 fL (80-95); MPV 10.9 fL (8.0-11.0); Monocytes % 6.7; Neutrophils % 74.4; Platelet Count 206 10^3/uL (130-400); RBC 4.08 10^6/uL (3.93-5.22); RDW 12.9 % (11.7-14.6); RDW-SD 42.4 fL; WBC 5.19 10^3/uL (4.4-10.8)
[2021-08-28 11:36] LABS: Glucose,1 Hr (Glucola) 78 mg/dL (80-140)
[2021-08-28 11:51] LABS: ALT 19 U/L (14-59); AST 12 U/L (15-37); Albumin 3.2 g/dL (3.4-5.0); Alkaline Phosphatase 57 U/L (46-116); Anion Gap 8.6 mmol/L (3-11); BUN 10 mg/dL (7-18); Bilirubin, Total 0.5 mg/dL (0.2-1.0); CO2 24.4 mmol/L (21.0-32.0); CREATININE 0.7 mg/dL (0.55-1.02); Calcium 8.3 mg/dL (8.5-10.1); Chloride 103 mmol/L (98-107); Glucose 75 mg/dL (74-106); LDH 138 U/L (81-234); Potassium 3.2 mmol/L (3.5-5.1); Sodium 136 mmol/L (136-145); TSH (W/Ref FT4) 1.06 uIU/mL (0.36-3.74); Total Protein 6.8 g/dL (6.4-8.2); Uric Acid 3.3 mg/dL (2.6-6.0)
[2021-08-28 12:09] LABS: *AMPHETAMINES SCREEN URINE Negative (Negative); *BARBITURATES SCREEN URINE Negative (Negative); *BENZODIAZEPINES SCREEN URINE Negative (Negative); Cannabinoids THC Positive (Negative); Cocaine Screen,Urine Negative (Negative); METHADONE URINE SCREEN Negative (Negative); OPIATES URINE SCREEN Negative (Negative); Tricyclic Antidepressants Negative (Negative)
[2021-08-29 13:40] LABS: Chlamydia Result Negative (Negative); GC Result Negative (Negative)
[2021-08-31 09:37] LABS: Hepatitis B Surface Ag Negative (Negative)
[2021-08-31 09:45] LABS: Hepatitis C Ab w Rflx HCV PCR Negative (Negative)
[2021-08-31 10:06] LABS: HIV-1/2 Ag & Ab Screen Negative (Negative)
[2021-08-31 12:08] LABS: Rubella IgG Ab (UVM) Positive (See Note); Varicella IgG Antibody Positive (See Note)
[2021-09-03 11:06] LABS: Buprenorphine Negative ng/mL (Cutoff: 5.0); Norbuprenorphine Negative ng/mL (Cutoff: 2.5)
== END 2021-08-28 02:05 | disposition home or self-care (01) ==
LOC: LBO 02:04
PROVIDERS: Advanced Practice Midwife; PCP Internal Medicine; Visit Provider Obstetrics & Gynecology
DX: O99.211 Obesity complicating pregnancy, first trimester (principal); Z87.59 Personal history of other complications of pregnancy, childbirth and the puerperium; Z3A.11 11 weeks gestation of pregnancy
CPT/HCPCS: 36415; 80053; 80307; 82950; 86787; 86803; 86850; 86900; 86901; 87340; 87389; 87491; 87591; 83615; 84443; 84550; 85025; 86762; 86780; 87086; 87480; 87510; 87660

== ENCOUNTER 2021-09-04 01:39 | Outpatient (CLI) | payer MEDICAID, SELFPAY ==
[2021-09-07 18:19] LABS: Syphilis IgG w/Reflex Nonreactive (Nonreactive)
== END 2021-09-04 01:40 | disposition home or self-care (01) ==
LOC: LBO 01:39
PROVIDERS: PCP Internal Medicine; Visit Provider Advanced Practice Midwife
DX: Z34.91 Encounter for supervision of normal pregnancy, unspecified, first trimester (principal); Z3A.12 12 weeks gestation of pregnancy
CPT/HCPCS: 36415; 86780

== ENCOUNTER 2021-09-23 15:16 | Outpatient (REF) | payer MEDICAID, SELFPAY | END 2021-09-23 15:17 | disposition home or self-care (01) | LOC: LBN 15:16 | PROVIDERS: PCP Internal Medicine; Visit Provider Advanced Practice Midwife | DX: R30.0 Dysuria (principal) | CPT/HCPCS: 87086 ==

== ENCOUNTER → 2021-10-14 01:23 | Outpatient (CLI) | payer MEDICAID, SELFPAY ==
--- NOTE | 2021-10-14 06:30 | DI.US_ITS ---
Exam(s) US OB 2-3 TRIMESTER EXAM: US OB 2-3 TRIMESTER CLINICAL HISTORY: anatomy,z34.92. TECHNIQUE: Transabdominal obstetrical ultrasound was performed. COMPARISON: US US OB JOHNSON WEIGHT from 09/24/2019 FINDINGS: There is a single viable intrauterine gestation with cardiac activity identified-141 bpm. Amniotic fluid: There is a normal amount of amniotic fluid. Placental location: The placenta is anterior grade 1,with no evidence of placenta previa. The distan ce from the tip of the placenta to the internal cervical os is 3 cm on today's study. Cervical lengt h measurement is 3.9 cm and closed. ANATOMY: A 3 vessel umbilical cord is seen. A four-chamber cardiac view was obtained. Right and left ventricular outflow tracts were imaged. There are no obvious abnormalities of the spinal column evident. There is no obvious abnormal ity of the anterior abdominal wall. stomach and urinary bladder are identified and there is no evidence of hydronephrosis. No abnormalities of the upper lip region are identified. No evidence of choroid plexus cysts i n the brain. Dating parameters place this at approximately 18 weeks and 0 days gestational age. BPD measures 18 weeks and 2 days HC measures 17 weeks and 6 days AC measures 17 weeks and 2 days FL measures 18 weeks and 3 days Estimated weight is 214 gm-0 pounds, 8 ounces Fetus is at the 17th percentile on the Hadlock scale. IMPRESSION:: Single viable intrauterine gestation which is approximately 18 weeks gestational age, i mplying an HERMINIO of 03/17/2022. There are no obvious anomalies evident on today's study. The placenta is anterior with no evidence of placenta previa. There is a normal amount of amniotic fluid. DATA REPOSITORY:
== END ==
PROVIDERS: PCP Internal Medicine; Visit Provider Advanced Practice Midwife
DX: Z34.92 Encounter for supervision of normal pregnancy, unspecified, second trimester (principal)
CPT/HCPCS: 76805

== ENCOUNTER 2021-12-18 01:56 | Outpatient (CLI) | payer MEDICAID, SELFPAY ==
[2021-12-18 09:53] LABS: HCT 36.3 % (36.0-46.0); MCH 29.4 pg (27.0-33.0); MCHC 33.1 % (32.0-36.0); MCV 89 fL (80-95); MPV 9.7 fL (8.0-11.0); Platelet Count 323 10^3/uL (130-400); RBC 4.08 10^6/uL (3.93-5.22); RDW 13.1 % (11.7-14.6); RDW-SD 42.6 fL; WBC 10.55 10^3/uL (4.4-10.8)
[2021-12-18 10:06] LABS: Glucose,1 Hr (Glucola) 102 mg/dL (80-140)
== END 2021-12-18 01:57 | disposition home or self-care (01) ==
LOC: LBO 01:56
PROVIDERS: Advanced Practice Midwife; PCP Internal Medicine; Visit Provider Obstetrics & Gynecology
DX: Z34.92 Encounter for supervision of normal pregnancy, unspecified, second trimester (principal)
CPT/HCPCS: 36415; 82950; 85027

== ENCOUNTER 2021-12-18 08:48 | Outpatient (REF) | payer MEDICAID, SELFPAY ==
[2021-12-18 11:10] LABS: PROTEIN 11.6 mg/dL (0.0-11.9)
[2021-12-18 11:14] LABS: *AMPHETAMINES SCREEN URINE Negative (Negative); *BARBITURATES SCREEN URINE Negative (Negative); *BENZODIAZEPINES SCREEN URINE Negative (Negative); Cannabinoids THC Positive (Negative); Cocaine Screen,Urine Negative (Negative); METHADONE URINE SCREEN Negative (Negative); OPIATES URINE SCREEN Negative (Negative)
[2021-12-18 11:20] LABS: Tricyclic Antidepressants Negative (Negative)
[2021-12-18 11:21] LABS: TOTAL PROTEIN,URINE TIMED 220.4 mg/24hr (0.0-149.1); Total Volume 1900 ml
[2021-12-23 12:32] LABS: Buprenorphine Negative ng/mL (Cutoff: 5.0); Norbuprenorphine Negative ng/mL (Cutoff: 2.5)
== END 2021-12-18 08:49 | disposition home or self-care (01) ==
LOC: LBN 08:48
PROVIDERS: Advanced Practice Midwife; PCP Internal Medicine; Visit Provider Advanced Practice Midwife
DX: O13.2 Gestational [pregnancy-induced] hypertension without significant proteinuria, second trimester (principal)
CPT/HCPCS: 80307; 80348; 81050; 84155

== ENCOUNTER → 2022-01-05 02:49 | Outpatient (CLI) | payer MEDICAID, SELFPAY ==
--- NOTE | 2022-01-05 07:15 | DI.US_ITS ---
Exam(s) US OB JOHNSON WEIGHT EXAM: US OB JOHNSON WEIGHT CLINICAL HISTORY: check growth due to first trimester bleeding,O20.9. TECHNIQUE: Transabdominal obstetrical ultrasound was performed. COMPARISON: US US OB 2-3 TRIMESTER from 10/14/2021 FINDINGS: There is a single viable intrauterine gestation with cardiac activity identified-129 bpm The fetus is presently in cephalic position . Amniotic fluid: There is a normal amount of amniotic fluid with an JOHNSON of 14.4cm. Placental location: The placenta is anterior grade 1,with no evidence of placenta previa. Dating parameters place this at approximately 30 weeks gestational age, implying HERMINIO of Riccardo decker 2021. BPD measures 29 weeks and 4 days HC measures 30 weeks and 2 days AC measures 30 weeks and 2 days FL measures 29 weeks and 4 days Estimated weight is 1484 gm-3 pounds, 4 ounces Fetus is at the 26th percentile on the Hadlock scale. IMPRESSION:: Viable 3rd trimester gestation, as described above. DATA REPOSITORY:
== END ==
PROVIDERS: PCP Internal Medicine; Visit Provider Advanced Practice Midwife
DX: Z34.93 Encounter for supervision of normal pregnancy, unspecified, third trimester
CPT/HCPCS: 76816

== ENCOUNTER 2022-02-16 17:05 | Outpatient (REF) | payer MEDICAID, SELFPAY ==
[2022-02-16 17:49] LABS: *AMPHETAMINES SCREEN URINE Negative (Negative); *BARBITURATES SCREEN URINE Negative (Negative); *BENZODIAZEPINES SCREEN URINE Negative (Negative); Cannabinoids THC Positive (Negative); Cocaine Screen,Urine Negative (Negative); METHADONE URINE SCREEN Negative (Negative); OPIATES URINE SCREEN Negative (Negative)
[2022-02-16 17:50] LABS: Tricyclic Antidepressants Negative (Negative)
[2022-02-23 15:38] LABS: Buprenorphine Negative ng/mL (Cutoff: 5.0); Norbuprenorphine Negative ng/mL (Cutoff: 2.5)
== END 2022-02-16 17:06 | disposition home or self-care (01) ==
LOC: LBN 17:05
PROVIDERS: PCP Internal Medicine; Visit Provider Advanced Practice Midwife
DX: Z34.93 Encounter for supervision of normal pregnancy, unspecified, third trimester (principal)
CPT/HCPCS: 80307; 80348; 87081

== ENCOUNTER 2022-03-18 11:24 | Outpatient (CLI) | payer MEDICAID, SELFPAY ==
[2022-03-18 14:23] VITALS: BP 136/67; PULSE 83; TEMP 36.9
[2022-03-18 14:37] VITALS: BP 136/67; PULSE 83
--- NOTE | 2022-03-18 15:05 | W.OBNST ---
Date of service: 03/18/22 Time of Service: 15:05 NST Evaluation Reason for NST Reasons for Nonstress Test: LABOR Reason for NST Other: rule out labor Gestational Age Gestational Age in Weeks and Days: 40 Weeks and 4Days Test and Monitor Explained Test/Monitor Explained: Test Explained, Monitor Explained and Patient Verbalized Understanding Vital Signs Blood Pressure: 136/67 Pulse: 83 Temperature: 98.4 F NST Information Date on Monitor: 03/18/22 Time on Monitor: 14:24 Date off Monitor: 03/18/22 Time off Monitor: 14:49 Total Time on Monitor: 25 Contraction Frequency: 0 NST Evaluation Patient States Movement: Present FHR Baseline: 120 Variability: Moderate 6-25 bpm Accelerations: 15x15 Decelerations: None NST Results: Reactive Note N/A NST Note Note: Bolivar complains of cramping and low back ache. SVE - cervix 1.5 cms/30%/-2. Signs of labor reviewed. Post dates testing scheduled for 03/22/21 NST Reviewed and Verified by: Greta Eng
[2022-03-18 15:06] VITALS: BP 136/67; PULSE 83; TEMP 36.9
== END 2022-03-18 14:59 | disposition home or self-care (01) ==
LOC: BCD 11:55 → OBS 12:04
PROVIDERS: PCP Internal Medicine; Visit Provider Advanced Practice Midwife
DX: O47.1 False labor at or after 37 completed weeks of gestation (principal); Z3A.40 40 weeks gestation of pregnancy
CPT/HCPCS: 59025

== ENCOUNTER 2022-03-21 02:39 | Inpatient (IN) | payer MEDICAID, SELFPAY ==
[2022-03-21] VITALS (13 sets, daily range): BP systolic 109–139; BP diastolic 62–82; PULSE 62–82; RESP 15–20; TEMP 36.4–36.8; O2SAT 99
--- NOTE | 2022-03-21 03:14 | NUR.NOTE ---
Nursing Note: [address] [facility] Greta Eng.called, updated. On her way in.
[2022-03-21 03:15] LABS: Source Nasal/Nares
[2022-03-21] MEDS: Oxytocin 10 UNITS/ML VIAL IM (03:31)
--- NOTE | 2022-03-21 03:42 | NUR.NOTE ---
Nursing Note:Dr Arerguin called due to large vaginal cyst, needs removal to visual for tears.
--- NOTE | 2022-03-21 03:56 | NUR.NOTE ---
Nursing Note: 0317 IV attempts X2 by second IV failed. Nursing gas distribution supervisor called
[2022-03-21 03:57] LABS: COVID-19 PCR Negative (Negative)
[2022-03-21] MEDS: Lidocaine 1% Multi-Dose 20 ML VIAL IJ (04:10)
--- NOTE | 2022-03-21 04:18 | NUR.NOTE ---
Nursing Note: Dr Arreguin here , removing vaginal cyst and assessing tear.
--- NOTE | 2022-03-21 04:33 | W.PM.PROGNOT ---
Date of Service Date of service: 03/21/22 Time of Service: 04:15 Assessment and Plan Assessment and plan (1) Vaginal wall cyst: Assessment and plan: Cyst removed without difficulty and repair completed. Subjective Subjective Interval history since last seen: Called to evaluate vaginal cyst s/p with the engineered wood designer. She had 2 prior deliveries, both with perineal repairs. Has not been bothered by the cyst previously but opted for removal. Objective Last Vital Signs Temp 97.9 F 03/21/22 02:56 Pulse 77 03/21/22 03:45 Resp 20 03/21/22 03:45 BP 134/72 03/21/22 03:45 Laboratory Results - last 24 hr 03/21/22 03:09 COVID-19 Source Nasal/Nares SARS-CoV-2 (PCR) Negative Objective Narrative Objective Narrative: The patient had a small second degree perineal tear. Just proximal to that there was a 1.5-2cm cyst attached in the midline posterior vaginal wall. After consent to remove the cyst more lidocaine was injected. The cyst was grasped with an allis clamp and removed with scissors. Trauma from the Allis caused it to rupture and leak a small amount of cloudy white fluid. The bed appeared clean and was repaired with 3-0 vicryl suture. The suture was continued to complete the repair of the second degree perineal laceration. Good hemostasis was noted. A rectal exam was done to confirm lack of injury to the rectum. Time Spent with Patient Time Spent with Patient: <25 minutes Time was spent: preparing to see the patient(eg.review tests), referring, communicating with other health care support representative and counseling the patient
--- NOTE | 2022-03-21 04:47 | W.PM.OBHPL1 ---
Date of service: 03/21/22 Time of Service: 04:47 Assessment and Plan Assessment and plan (1) Spontaneous onset of labor: Status: Acute Assessment and plan: Admit to Center. Comfort measures. Covid- 19 test. Anticipate imminent . OB-HPI Labor/Delivery History of Present Illness Reason for Visit: Labor Chief Complaint: Uterine Contractions. HERMINIO Calculator Estimated Delivery Date Method Current WG Current Estimate 03/14/22 LMP (Certain) 41w 0d Other Estimates 03/19/22 Ultrasound #1 40w 2d Comments: Bolivar came in at 0130 with report of strong regular contractions at home. She was examined by RN and was found to be 2 cms/ 75% effaced. Her contractions were 5-7 minutes apart. She was observed for signs of active labor and at 0230 she was examined and found to be 3-4 cms/90% with high presenting part. She was admitted to npatient at that time. Bolivar requested to use the tub and was moved to the tub room. her membranes ruptured while I was enroute to the hospital and her labor intensified. Shortly after that she had an urge to push. History of Present Expected Delivery Route/Plan - CNM FOB/fiance - Sushant BG / GBS neg Would like access to using the tub Specific Issues/Plan 1. Hx GHTN last : Early labs, ASA 12 weeks- CMP WNL 1a. 24 hour urine completed 12/18- 220 2. Panorama done; LR female, declined SMA, CF previously done negative 3. BMI 38, Early glucola=78 4. UDS is THC+, plan repeat @ 28 wks +THC - POSC done 02/16/22 5. Spotting at 14 weeks - pelvic rest x 1 week - FHTs confirmed- 5a. 32 week growth US- EFW 26, JOHNSON 14.4 6. Covid vaccinated-Had infection 2020. Covid infection 02/08/22 - mild symptoms 7. History of kidney stones - passed prior to 8. Migraine - ED visit 12/05 - fioricet escribed 12/06 9. Tooth abcess - amoxicillin x 7 days. 10. Genital Herpes History- valtrex 500 mg BID at 36 weeks (ordered) 10a. Decreased dose to 500 mg QD due to nausea. 11. History of migraine PFSH All Active Problems (Updated 03/21/22 @ 04:55 by Greta Eng CNM) Spontaneous onset of labor (Acute) Anxiety (Chronic) GERD (gastroesophageal reflux disease) (Chronic) Hx of left breast biopsy (Acute) chip placed in tumor that was bx as benign. to inform others that this tumor has been bx. BMI 38.0-38.9,adult (Acute) (Acute) History of herpes genitalis (Acute) Type 1 First trimester bleeding (Acute) COVID-19 affecting in third trimester (Acute) COVID+ at 34 wks (GI sx only) Marijuana user (Acute) Medical History (Updated 03/21/22 @ 04:55 by Greta Eng CNM) Closed left arm fracture Gestational hypertension affecting second History of gestational hypertension History of kidney stones Migraine headache with aura Situational depression Vaginal wall cyst Family History (Updated 08/28/21 @ 09:17 by Greta Agrawal CNM) Mother Hypertension Depression Diabetes pre diabetes Maternal Aunt Lupus Cancer Maternal Grandmother Cancer Dementia Social History (Updated 03/16/19 @ 20:05 by Lucina Higginbotham MD) Smoking/Tobacco Use Status: Former Tobacco Use Tobacco: How many years used: 2 Smoking risk assessment performed?: Yes Alcohol Intake: never Drug use: Occasionally Substance use type: marijuana Household members: significant other and other Details: Allison LuceroMikaylaAnge. 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 Date GA/Weeks # Preg Succ Route Wgt Sex Labor Lgth Anesthesia Location Prov Complic 03/16/11 41 No vaginal 7 lb 8 oz Female 11 hs. andre valdovinos 10/16/19 37 No vaginal 7 lb 2 oz Male 1hour 32min Kelly Brunner CNM Delivery Date: 03/16/11 Last Updated by: Galina Brunner , w/ mec. staining w/o repercussions, 2nd degree midline lac. repair unremarkable. Delivery Date: 10/16/19 Last Updated by: Maliha Chau, CLOTH MERCERIZER OPERATOR Induced due to gestational HTN; 2nd degree perineal laceration Meds Allergies and Home Medications Allergies Allergy/AdvReac Type Severity Reaction Status Date / Time No Known Allergies Allergy Verified 03/16/22 09:56 Home Medications Medication Instructions Recorded Confirmed Type prenat.vits,erma,bjx-xuhm-vrmyz 1 tab PO DAILY 02/20/19 03/16/22 History wboczyrwhi-cbdfwcmhywnnd-rgzefkxq 1 cap PO Q8H PRN pain #14 caps 12/06/21 03/16/22 Rx 50 mg-300 mg-40 mg capsule (Fioricet) omeprazole 20 mg capsule,delayed 20 mg PO DAILY #90 caps 12/29/21 03/16/22 Rx release valacyclovir 1 gram tablet 1,000 mg PO DAILY #30 tabs 03/09/22 03/16/22 Rx (Valtrex) Exam Physical Exam Vital signs: Temp Pulse Resp BP 97.5 F L 77 20 134/72 03/21/22 04:30 03/21/22 03:45 03/21/22 03:45 03/21/22 03:45 Detailed Labor and Delivery Exam Dilation: 10 station: +3 Ward Score: Cervical Points Exam 0 1 2 3 Dilation Closed 1-2cm 3-4 cm 5-6cm Effacement 0-30% 40-50% 60-70% 80% Consistency Firm Medium Soft Station -3 -2 -1,0 +1,+2 Position Posterior Mid Anterior Amniotic Membrane Status: Ruptured Rupture Method: Spontaneous Amniotic Fluid: Clear Monitor Mode: External Contraction Frequency(min): every 2 minutes Contraction Duration(sec): 50-60 Contraction Intensity: Strong Fetus A Heart Rate Baseline: 120 Monitor Decelerations: Variable Variability: Moderate (6-25 BPM) Presentation: Vertex Categories: Category III Date of Membrane Rupture: 03/21/22 Time of Membrane Rupture: 02:56 Assessment Note: There were variable decelerations noted after ROM at 0300 and patient was placed on the external monitor. The baby descended rapidly and there was a prolonged deceleration. An attempt was made x [address] an IV unsuccessfully. Bolivar was placed on her hands and knees. I was paged at that time to come to the room stat and upon my arrival in the room, the vertex was visible on the perineum and Bolivar was bearing down. Results Results Group Beta Strep: Negative Blood Type: O+ Rubella Status: Immune Varicella Immunity: Immune Risk Assessment Risk for Shoulder Dystocia Historical/Initial OB: POSITIVE FOR: Pre- BMI>30; NEGATIVE FOR: Pelvic Abnormality, Previous Shoulder Dystocia or Previous Macrosomia Increased Risk?: No Counseling: as of iob 04/09/19, increased risk 2` to elevated bmi. reviewed appropriate wt gain. Delivery Plan @ 36wks: spont labor, Risk for Pre-Eclampsia Daily Dose ASA Indicated: No Date Initiated/Initials: 04/09/19 mild increase due to BMI Yes, if one or more: POSTIVE FOR: Hx Pre-E/Gest HTN; NEGATIVE FOR: Chronic HTN, Multiple Gestation, Pre-gestational DM, Renal Disease, Systemic Lupus or APA Syndrome Yes, if 2 or more: POSITIVE FOR: BMI>30; NEGATIVE FOR: Nulliparity, Age>= 35 yrs, >10yr btwn pregnancies, ethinicty, Mother/Sister w/ Pre-E or Previous IUGR Risk for Post- Hemorrhage Initial: NEGATIVE FOR: Multiple Gestation, Previous PPH, Known Clotting Deficiency, Grand Multiparity or Anticoagulation At Risk?: No Counseled re: Active Management: Yes Risks Reviewed Risks Reviewed Upon Admission: Yes
--- NOTE | 2022-03-21 05:00 | W.OBDELIVERY ---
Date of service: 03/21/22 Time of Service: 05:00 OB Labor/ Delivery Information Baby A Delivery Delivery Method: Spontaneaous Presentation: Vertex Vertex Position: Right Occipital Anterior Amniotic Fluid: Clear Estimated Blood Loss: 200 Delivery Outcome: Liveborn Infant Transferred: Remains with Mother Note: Bolivar changed her cervix from 2 to 3-4 cms in 1 hour and her contractions became stronger. At that time, I was paged and admission orders given. She was admitted to inpatient at 0239. Membranes ruptured at 0256 while standing at the bedside and she began having an urge to push. FHTs were 120s during second stage of labor with variable decelerations associated with contractions. Bolivar was moved to hands and knees position due to a prolonged deceleration. Attempts x [address] an IV. I was present in the hospital in the call room and I was paged to the center stat. Upon my arrival. The vertex was visible on the perineum and there was bradycardia. She delivered rapidly while on her hands and knees, a spontaneous delivery of female infant delivered in LUNA position. Baby was placed on mother's abdomen and dried and stimulated. Spontaneous cry. Cord was clamped and cut by the baby's father. The placenta delivered spontaneously and appears to by intact with a three vessel cord. Pitocin 10 units was administered before delivery of the placenta. The perineum was inspected and there was a 1.5 cm perineal cyst noted and a small 2nd degree laceration. I had Dr. Mcgee called in to assist with the removal of the cyst ( see perineal repair note) . The baby did breastfeed well. After delivery, Mother and baby and father of the baby were stable and bonding well in the delivery room and there were no complications. Providers Doctor: Greta Eng Nurse Freelance Recruiter: Greta Eng Nurse: Cheryl Hebert Nurse: Jayant Barba Labor/Delivery Information Steroids Given: None Reason Steroids Not Administered: N/A Group Beta Strep: Negative Rubella Status: Immune Blood Type: O+ Varicella Immunity: Immune Maternal Complications: None Stages of Labor Onset of Labor Date: 03/20/22 Onset of Labor Time: 21:00 Complete Dilatation Date: 03/21/22 Complete Dilatation Time: 03:23 Labor - Stage 1 Duration: 6 hours and 23 minutes ROM Baby A: 03/21/22 ROM Baby A: 02:56 Placenta Delivery Date-Baby A: 03/21/22 Placenta Delivery Time-Baby A: 03:32 Placenta Cultured: No Placenta Status: Delivered Baby A Gender: Female Score-1 Minute Interval(Baby A) Heart Rate-1 minute: 100 BPM or Greater Respiratory Effort- 1 minute: Spontaneous/Strong Cry Muscle Tone-1 minute: Active Movement Reflex Response-1 minute: Prompt Response Color-1 minute: Bluish Hands or Feet Total Score-1 minute: 9 Score-5 Minute Interval(Baby A) Heart Rate- 5 minute: 100 BPM or Greater Respiratory Effort-5 minute: Slow Respiration/Weak Cry Muscle Tone-5 minute: Active Movement Reflex Response-5 minute: Prompt Response Color-5 minute: Bluish Hands or Feet Total Score- 5 minute: 8
[2022-03-21] MEDS: Acetaminophen 325 MG TAB 650 MG PO ×3 (05:08→21:22)
[2022-03-21] MEDS: Ibuprofen 600 MG TAB PO ×3 (05:09→21:23)
[2022-03-21 06:31] LABS: HCT 40.3 % (36.0-46.0); HGB 13.3 g/dL (11.2-15.7); MCH 28.4 pg (27.0-33.0); MCV 86 fL (80-95); Platelet Count 224 10^3/uL (130-400); RBC 4.69 10^6/uL (3.93-5.22); RDW 14.9 % (11.7-14.6); RDW-SD 47.1 fL
[2022-03-21] MEDS: Docusate Sodium 100 MG CAP PO (21:23)
[2022-03-22 05:00] VITALS: BP 129/73; PULSE 67; RESP 16; TEMP 36.8; O2SAT 99
[2022-03-22] MEDS: Ibuprofen 600 MG TAB PO (05:25)
[2022-03-22] MEDS: Acetaminophen 325 MG TAB 650 MG PO (05:25)
[2022-03-22 08:00] VITALS: BP 124/81; PULSE 66; RESP 14; TEMP 37
--- NOTE | 2022-03-22 11:06 | DSE_ITS ---
Date of service: 03/22/22 Time of Service: 11:06 DS: Diagnosis Discharge Diagnosis (1) Term of female : Status: Acute Asessment and Plan: S/P vaginal delivery with removal of perineal cyst by Dr. Mcgee. Caring for baby independently. Pain is managed well with oral analgesics. Voiding without difficulty. well. A - stable mother and baby , Post day 1, well P - Discharge to home today. Routine post instructions. [facility] Discharge Plan Disposition Patient Disposition: Home Condition: Good Discharge Details Reason For Visit: Labor Admit Date/Time: 03/21/22 02:39 Admit Provider: Greta Eng Attending Provider: Greta Eng Primary Care Provider: Rowan Galvez Home Meds and New Rx's Prescriptions: No Action prenat.vits,erma,zlc-upib-uoize Tablet 1 tab PO DAILY valacyclovir [Valtrex] 1 gram tablet 1,000 mg PO DAILY Qty: 30 0RF wcsjocctcl-zlhrmpmczbpve-siyj [Fioricet] 50-300-40 mg capsule 1 cap PO Q8H PRN (Reason: pain) Qty: 14 0RF omeprazole 20 mg capsule,delayed release(DR/EC) 20 mg PO DAILY Qty: 90 4RF Discharge Instructions Stand Alone Forms: BC Instructions, BC Post Vaginal Deliver Activity:: Activity as Tolerated Equipment/Supplies:: No Equipment Needed Diet:: As Tolerated Discharge Orders Discharge Orders: Discharge Order (Routine); Ordered 03/22/22 Ordered By: Greta Eng OB:DS Summary Summary Vaginal Delivery Method: Spontaneaous Contraception Discussed Contraception Discussed: Yes Contraceptive Plan: IUD, [place] Infant Gender-Baby A: Female weight: 7 lb 0.524 oz Status at Discharge Functional status at discharge: independent ambulation Overall status at discharge: patient is back to baseline Mental Status: mental status grossly normal Speech and Movement: speech and movement normal Mood: congruent mood Affect: normal affect Exam Physical Exam Vital signs: Temp Pulse Resp BP Pulse Ox 98.6 F 66 14 124/81 99 03/22/22 08:00 03/22/22 08:00 03/22/22 08:00 03/22/22 08:00 03/22/22 05:00 Respiratory Exam Respiratory Exam: Normal Cardiovascular Exam Cardiovascular Exam: Normal Fundal Exam Fundus: Below Umbilicus and Firm Extremities Exam Extremity Exam: Normal Psychiatric Exam Psychiatric Exam: Normal PFSH All Active Problems (Updated 03/22/22 @ 11:07 by Greta Eng CNM) Term of female (Acute) Anxiety (Chronic) GERD (gastroesophageal reflux disease) (Chronic) Hx of left breast biopsy (Acute) chip placed in tumor that was bx as benign. to inform others that this tumor has been bx. BMI 38.0-38.9,adult (Acute) (Acute) History of herpes genitalis (Acute) Type 1 Marijuana user (Acute) Medical History (Updated 03/22/22 @ 11:07 by Greta Eng CNM) Closed left arm fracture Gestational hypertension affecting second History of gestational hypertension History of kidney stones Migraine headache with aura Situational depression Vaginal wall cyst Family History (Updated 08/28/21 @ 09:17 by Greta Agrawal CNM) Mother Hypertension Depression Diabetes pre diabetes Maternal Aunt Lupus Cancer Maternal Grandmother Cancer Dementia Social History (Updated 03/16/19 @ 20:05 by Lucina Higginbotham MD) Smoking/Tobacco Use Status: Former Tobacco Use Tobacco: How many years used: 2 Smoking risk assessment performed?: Yes Alcohol Intake: never Drug use: Occasionally Substance use type: marijuana Household members: significant other and other Details: Kahlil Cooper. 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 Date GA/Weeks # Preg Succ Route Wgt Sex Labor Lgth Anesth esia Location Prov Complic 03/16/11 41 No vaginal 7 lb 8 oz Female 11 hs. andre valdovinos 10/16/19 37 No vaginal 7 lb 2 oz Male 1hour 32min Kelly Brunner CNM Delivery Date: 03/16/11 Last Updated by: Galina Brunner , w/ mec. staining w/o repercussions, 2nd degree midline lac. repair unremarkable. Delivery Date: 10/16/19 Last Updated by: Maliha Chau, TAG PRESS OPERATOR Induced due to gestational HTN; 2nd degree perineal laceration DS: Data Vitals/I&O Vitals and I&O: Vital Signs Temperature 98.6 F 03/22/22 08:00 Pulse 66 03/22/22 08:00 Pulse Rhythm Regular 03/22/22 08:00 Respiratory Rate 14 03/22/22 08:00 Respiratory Depth Normal 03/21/22 02:56 Blood Pressure 124/81 03/22/22 08:00 Blood Pressure Mean 95 03/22/22 08:00 Pulse Oximetry 99 03/22/22 05:00 Oxygen Delivery Method Room Air 03/21/22 02:56 Oxygen Flow Rate 0 03/21/22 02:56 Pain Level 0 03/22/22 08:00 Comment 03/21/22 03:45 Intake & Output 03/21/22 03/21/22 03/22/22 11:59 23:59 11:59 Output Total 600 / 1050 450 / 1050 Balance -600 / -1050 -450 / -1050 Weight 262 lb Output: Urine 600 / 1050 450 / 1050 Other: Urine Color Pale
== END 2022-03-22 11:30 | disposition home or self-care (01) | DRG 768 ==
LOC: OBS 02:45 → BCD 03-22 09:53
PROVIDERS: Admitting Provider Advanced Practice Midwife; PCP Internal Medicine; Visit Provider Advanced Practice Midwife
DX: O98.32 Other infections with a predominantly sexual mode of transmission complicating childbirth (principal); Z37.0 Single live birth; O99.324 Drug use complicating childbirth; O99.354 Diseases of the nervous system complicating childbirth; Z3A.41 41 weeks gestation of pregnancy; A60.00 Herpesviral infection of urogenital system, unspecified; F12.90 Cannabis use, unspecified, uncomplicated; O99.62 Diseases of the digestive system complicating childbirth; N89.8 Other specified noninflammatory disorders of vagina; O99.344 Other mental disorders complicating childbirth; F41.9 Anxiety disorder, unspecified; O70.1 Second degree perineal laceration during delivery; O99.892 Other specified diseases and conditions complicating childbirth; G43.109 Migraine with aura, not intractable, without status migrainosus; K21.9 Gastro-esophageal reflux disease without esophagitis
CPT/HCPCS: 57135; 36415; 85027; 87635; 59025; J2590; J3490

== ENCOUNTER 2024-05-17 01:37 | Outpatient (CLI) | payer MEDICAID, SELFPAY ==
--- NOTE | 2024-05-17 06:32 | DI.US_ITS ---
Exam(s) US PELVIS TRANSVAGINAL EXAM: US PELVIS TRANSVAGINAL CLINICAL HISTORY: ? PCOS, fibroids, endometrial stripe,irregular periods TECHNIQUE: Ultrasound of the pelvis was performed both transabdominal and transvaginal. COMPARISON: US US OB JOHNSON WEIGHT from 01/05/2022 FINDINGS: UTERUS: Nongravid and anteverted Measures 9.4 cm length x 4.4 cm AP x 0.8 cm wide. There is a small anterior fundal left fibroid measuring 1.6 x 1.7 cm. Endometrial thickness measures 4 mm. There is no fluid in the endometrial canal. CERVIX: There are no obvious nabothian cysts. RIGHT OVARY: Measures 0.7 x 1.9 x 2.0 cm No significant cysts nor masses evident in the right ovary. LEFT OVARY: Measures 3.8 x 2.3 x 2.4 cm There is a 2 cm cyst in left ovary. CUL-DE-SAC: No free fluid evident. IMPRESSION: 1. There is a small anterior near fundus left of center uterine fibroid measuring 16 x 7 mm. 2. There is a 2 cm cyst in the left ovary. Probably follicular. No other ovarian findings. 3. No free fluid evident in the adnexal regions and cul-de-sac. DATA REPOSITORY:
== END 2024-05-17 01:57 ==
LOC: DI 01:37
PROVIDERS: PCP Internal Medicine; Visit Provider Advanced Practice Midwife
DX: N83.292 Other ovarian cyst, left side (principal)
CPT/HCPCS: 76830; 76856

== ENCOUNTER 2024-06-05 11:37 | Outpatient (REF) | payer MEDICAID, SELFPAY ==
--- NOTE | 2024-06-05 11:20 | PAPFT_PTH ---
PATIENT: Bolivar Mackenzie LOC: [place] U#:[id number] AGE/SX: 33/F ROOM: RE06/05/[address]: Kanwal Hoang NP : 1990 BED: DIS: 06/05/2024 SPEC #: [id number] RECD: 06/05/24 13:02 STATUS: RAMBO REMickey #: [id number] ROBY: 06/05/24 11:[address]: Kanwal Hoang NP DEPT: [facility] Cytology RECD BY: Cecily Waite ENTERED: 06/05/24 13:02 SP TYPE: PAPFT OTHR DR: Rowan Galvez Tissues: 1 - CX/ENDOCX FOR PAP SMEARS Procedures: PAP THIN PREP/UVM Screening HPV DNA PROBE Comments: [id number] (HPV 16 & 18/45) (CHLAMYDIA/GC)
[2024-06-06 12:40] LABS: Chlamydia Result Negative (Negative); GC Result Negative (Negative)
== END 2024-06-05 11:38 | disposition home or self-care (01) ==
LOC: LBN 11:37
PROVIDERS: PCP Internal Medicine; Visit Provider Nurse Practitioner Women's Health
DX: Z12.4 Encounter for screening for malignant neoplasm of cervix (principal)
CPT/HCPCS: 87491; 87591; 88142; 87624

== ENCOUNTER 2024-12-18 10:32 | Outpatient (REF) | payer MEDICAID, SELFPAY | END 2024-12-18 10:33 | disposition home or self-care (01) | LOC: LBN 10:32 | PROVIDERS: PCP Internal Medicine; Visit Provider Nurse Practitioner Women's Health | DX: N76.0 Acute vaginitis (principal) | CPT/HCPCS: 87480; 87510; 87660 ==